=== PATIENT | male | born 1945 | race Caucasian/White ===

== ENCOUNTER 2016-04-23 19:31 | Inpatient (IN) | payer OTHER ==
[~2016-04-23] VITALS: Ht 175.3 cm; Wt 84.8 kg
[~2016-04-23 19:31] MED LIST: ASPCH81X PO; SIMV80TA2 PO; TELM80TA PO
[2016-04-23] MEDS ORDERED: SODIUM CHLORIDE 0.9% 1000ML 1,000 ML IV STA (19:54)
[2016-04-23] MEDS ORDERED: ONDANSETRON 8 MG/54 ML D5W IV STA (19:54)
[2016-04-23] MEDS ORDERED: DIAZEPAM INJ 5 MG/ML 2 ML CARP IV STA ×2 (19:54→20:53)
[2016-04-23] MEDS ORDERED: SODIUM CHLORIDE 0.9% 500ML 500 ML IV STA (19:54)
[2016-04-23 20:07] LABS: BASO % 0.2 %; BASO ABS # 0.03 K/uL (0-0.2); COMPLETE YES; EOS % 0.8 %; HEMATOCRIT 43.7 % (42-52); IG% 0.3 %; LYMPH % 6.5 %; LYMPH ABS # 0.98 K/uL (1.2-3.4); MEAN CELL VOLUME 88.8 fL (80-100); MEAN CORPUSCULAR HEMOGLOBIN 30.5 pg (25-34); MEAN CORPUSCULAR HGB CONC 34.3 g/dl (32-36); MEAN PLATELET VOLUME 12.3 fL (7.4-10.4); MONO % 4.3 %; NEUT % 87.9 %; PLATELET COUNT 200 K/uL (130-400); RED BLOOD COUNT 4.92 M/uL (4.7-6.1); WHITE BLOOD COUNT 15.02 K/uL (4.8-10.8)
[2016-04-23 20:18] LABS: PARTIAL THROMBOPLASTIN RATIO 1.1
[2016-04-23 20:39] LABS: BUN/CREATININE RATIO 19.2 (10-20); CALCIUM 9.6 mg/dl (8.5-10.1); CREATININE 0.95 mg/dl (0.60-1.40); MAGNESIUM 2.1 mg/dl (1.8-2.4)
--- NOTE | 2016-04-23 20:39 | DIAGNOSTIC IMAGING REPORT ---
CT HEAD WITHOUT CONTRAST (CT) CLINICAL HISTORY: Weakness COMPARISON STUDY: 10/15/2013 TECHNIQUE: Axial CT of the brain is performed from the vertex to the skull base. IV contrast was not administered for this examination. CT DOSE: 884.08 mGy.cm FINDINGS: There is a stable 16 mm midline posterior fossa mass with secondary deformity of the fourth ventricle. There is no CT evidence of acute cortical infarction. There is no midline shift. There is no acute hemorrhage. There are patchy white matter hypodensities likely on a small vessel basis. There is no evidence of pathologic ventricular dilatation. There is no evidence of acute sinusitis IMPRESSION: 1. No acute intracranial findings 2. Stable midline posterior fossa mass with secondary deformity of the fourth ventricle 3. No evidence of hydrocephalus Electronically signed by: Fausto Dyer M.D. 04/23/2016 8:37 PM Dictated Date/Time: 04/23/2016 8:35 PM
[2016-04-23 20:50] LABS: THYROID STIMULATING HORMONE 2.42 uIu/ml (0.300-4.500)
[2016-04-23] MEDS ORDERED: ACETAMINOPHEN 500 MG TAB PO STA (20:54)
[2016-04-23] MEDS ORDERED: CELE1CAP30 PO (21:15)
[2016-04-23] MEDS ORDERED: TPRSR/25 PO (21:15)
[2016-04-23] MEDS ORDERED: ACET-1256 PO (21:15)
[2016-04-23] MEDS ORDERED: LPT40 PO (21:15)
[2016-04-24] MEDS ORDERED: HYDROmorphone INJ 0.5 MG/0.5 ML SYR IV STA (00:48)
[2016-04-24] MEDS ORDERED: METOCLOPRAMIDE HCL INJ 5 MG/ML 2 ML VIAL IV STA (00:48)
[2016-04-24] MEDS ORDERED: DIAZEPAM INJ 5 MG/ML 2 ML CARP IV STA (00:48)
[2016-04-24] MEDS ORDERED: DiphenhydrAMINE HCL 50 MG/ML VIAL IV STA (00:48)
[2016-04-24 00:56] LABS: URINE APPEARANCE CLEAR (CLEAR); URINE BILIRUBIN NEG (NEG); URINE COLOR YELLOW; URINE NITRITE NEG (NEG); URINE SPECIFIC GRAVITY 1.014 (1.000-1.030); UROBILINOGEN NEG (NEG)
[2016-04-24 01:02] LABS: MANUAL MICROSCOPIC REQUIRED? NO; REVIEW REQ? NO
[2016-04-24] MEDS ORDERED: GADAVIST IV PRN (03:15)
[2016-04-24] MEDS ORDERED: ASPIRIN 81 MG CHEW PO STA (03:49)
--- NOTE | 2016-04-24 04:45 | EMERGENCY ROOM VISIT NOTE ---
History Report prepared by Bonifacio: Kathryn Tran Under the Supervision of: Dr. Liam Oshea M.D. First contact with patient: 19:39 Chief Complaint: VOMITING Stated Complaint: VOMITING, NAUSEA, DIARRHEA History of Present Illness The patient is a 70 year old male who presents to the Emergency Room via family with complaints of worsening nausea, vomiting, diarrhea, dizziness, and a right- sided headache with onset two hours ago. Two days ago, the patient went to see his PCP to be treated for gout. He was put on Celebrex, which he has been taking since. Two hours ago, the patient became dizzy, feeling as if the room was spinning, and he noticed that his walking was not normal. The patient notes that his headache started at the same time as his vomiting. He denies a history of vertigo. 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 The patient has a stent in place. Pt denies LOC, fevers, chills , diaphoresis, visual changes, neck pain, chest pain, breathing difficulties, abdominal pain, back pain, melena, hematochezia, urinary symptoms, numbness, weakness, lymphadenopathy, rash, or other complaints. Source of History: patient, family Onset: 2 hours ago Position: other (global) Quality: other (vomiting, dizziness) Timing: worsening Note: The patient was dizzy and noticed that his walking was not normal. Review of Systems See HPI for pertinent positives and negatives. A total of ten systems were reviewed and were otherwise negative. Past Medical & Surgical Medical Problems: (1) Dyslipidemia (2) Hypertension (3) Pancreatitis Family History Blood clots MOTHER Diabetes mellitus MOTHER FH: CAD (coronary artery disease) FATHER FH: atrial fibrillation BROTHER FH: kidney cancer FATHER FH: pancreatic cancer MOTHER Stroke MOTHER Social History Smoking Status: Current Every Day Smoker Marital Status: Current/Historical Medications Scheduled Aspirin (Aspirin Chewable), 81 MG PO DAILY Atorvastatin (Atorvastatin Calcium), 40 MG PO AFTERNOON Celecoxib (Celecoxib), 200 MG PO QAM Metoprolol Succinate (Metoprolol Succinate ER), 25 MG PO QAM Telmisartan (Micardis), 40 MG PO DAILY Scheduled PRN Acetaminophen (Tylenol), 500 MG PO Q6 PRN for Pain Allergies Coded Allergies: No Known Allergies (Unverified , 04/23/16) Physical Exam Vital Signs Date Time Temp Pulse Resp B/P Pulse Ox O2 Delivery O2 Flow Rate FiO2 04/24/16 01:00 62 16 150/80 96 Room Air 04/24/16 00:24 63 16 165/88 96 Room Air 04/23/16 22:41 73 16 97 04/23/16 22:36 77 20 97 04/23/16 22:31 65 18 97 04/23/16 22:28 162/112 04/23/16 22:26 67 14 97 04/23/16 22:21 65 16 97 04/23/16 22:16 67 14 97 04/23/16 22:11 67 14 97 04/23/16 22:06 72 14 95 04/23/16 22:01 71 21 97 04/23/16 21:59 153/85 04/23/16 21:56 78 19 97 04/23/16 21:51 70 11 98 04/23/16 21:46 89 13 98 04/23/16 21:41 76 12 98 04/23/16 21:36 68 14 98 04/23/16 21:33 65 04/23/16 21:31 74 15 97 04/23/16 21:29 162/107 04/23/16 21:26 70 10 97 04/23/16 21:12 63 18 174/95 98 Room Air 04/23/16 21:12 174/95 04/23/16 19:49 98 Room Air 04/23/16 19:49 98 Room Air 04/23/16 19:44 36.8 66 20 199/99 98 Room Air Physical Exam GENERAL: Awake, alert, well appearing, no distress HENT: Normocephalic, atraumatic. TM's normal. Oropharynx unremarkable. EYES: PERRL. EOMI. Normal conjunctiva. Sclera non-icteric. Lateral nystagmus with leftward gaze. NECK: Supple. No nuchal rigidity. FROM. No JVD or bruit. RESPIRATORY: CTA CARDIAC: RRR. No murmur. ABDOMEN: Soft, non distended. No tenderness to palpation. No rebound or guarding. No masses. RECTAL: Deferred. MUSCULOSKELETAL: Unremarkable. No edema. No discoloration. Gross motor strength symmetric. NEURO: Cranial nerves 2-12 grossly intact. Normal sensorium. No sensory or motor deficits noted. Speech normal. No pronator drift. Normal rapid alternating movements. SKIN: No rash or jaundice noted. LYMPH: No adenopathy. Medical Decision & Procedures ER Provider Diagnostic Interpretation: Radiology results as stated below per my review and radiologist interpretation. CT HEAD WITHOUT CONTRAST (CT) CLINICAL HISTORY: Weakness COMPARISON STUDY: 10/15/2013 TECHNIQUE: Axial CT of the brain is performed from the vertex to the skull base. IV contrast was not administered for this examination. CT DOSE: 884.08 mGy.cm FINDINGS: There is a stable 16 mm midline posterior fossa mass with secondary deformity of the fourth ventricle. There is no CT evidence of acute cortical infarction. There is no midline shift. There is no acute hemorrhage. There are patchy white matter hypodensities likely on a small vessel basis. There is no evidence of pathologic ventricular dilatation. There is no evidence of acute sinusitis IMPRESSION: 1. No acute intracranial findings 2. Stable midline posterior fossa mass with secondary deformity of the fourth ventricle 3. No evidence of hydrocephalus Electronically signed by: Fausto Dyer M.D. 04/23/2016 8:37 PM Dictated Date/Time: 04/23/2016 8:35 PM Laboratory Results 04/23/16 19:40 Red Blood Count 4.92, Mean Corpuscular Volume 88.8, Mean Corpuscular Hemoglobin 30.5, Mean Corpuscular Hemoglobin Concent 34.3, Mean Platelet Volume 12.3, Neutrophils (%) (Auto) 87.9, Lymphocytes (%) (Auto) 6.5, Monocytes (%) (Auto) 4.3, Eosinophils (%) (Auto) 0.8, Basophils (%) (Auto) 0.2, Neutrophils # (Auto) 13.19, Lymphocytes # (Auto) 0.98, Monocytes # (Auto) 0.65, Eosinophils # (Auto) 0.12, Basophils # (Auto) 0.03 04/23/16 19:40 Test 04/23/16 19:40 04/24/16 00:35 White Blood Count 15.02 K/uL (4.8-10.8) Red Blood Count 4.92 M/uL (4.7-6.1) Hemoglobin 15.0 g/dL (14.0-18.0) Hematocrit 43.7 % (42-52) Mean Corpuscular Volume 88.8 fL (80-100) Mean Corpuscular Hemoglobin 30.5 pg (25-34) Mean Corpuscular Hemoglobin Concent 34.3 g/dl (32-36) Platelet Count 200 K/uL (130-400) Mean Platelet Volume 12.3 fL (7.4-10.4) Neutrophils (%) (Auto) 87.9 % Lymphocytes (%) (Auto) 6.5 % Monocytes (%) (Auto) 4.3 % Eosinophils (%) (Auto) 0.8 % Basophils (%) (Auto) 0.2 % Neutrophils # (Auto) 13.19 K/uL (1.4-6.5) Lymphocytes # (Auto) 0.98 K/uL (1.2-3.4) Monocytes # (Auto) 0.65 K/uL (0.11-0.59) Eosinophils # (Auto) 0.12 K/uL (0-0.5) Basophils # (Auto) 0.03 K/uL (0-0.2) RDW Standard Deviation 42.7 fL (36.4-46.3) RDW Coefficient of Variation 13.2 % (11.5-14.5) Immature Granulocyte % (Auto) 0.3 % Immature Granulocyte # (Auto) 0.05 K/uL (0.00-0.02) Prothrombin Time 11.0 SECONDS (9.0-12.0) Prothromb Time International Ratio 1.0 (0.9-1.1) Activated Partial Thromboplast Time 27.3 SECONDS (21.0-31.0) Partial Thromboplastin Ratio 1.1 Anion Gap 9.0 mmol/L (3-11) Est Creatinine Clear Calc Drug Dose 83.5 ml/min Estimated GFR () 93.0 Estimated GFR (Non- 80.2 BUN/Creatinine Ratio 19.2 (10-20) Calcium Level 9.6 mg/dl (8.5-10.1) Magnesium Level 2.1 mg/dl (1.8-2.4) Total Bilirubin 0.3 mg/dl (0.2-1) Direct Bilirubin 0.1 mg/dl (0-0.2) Aspartate Amino Transf (AST/SGOT) 22 U/L (15-37) Alanine Aminotransferase (ALT/SGPT) 37 U/L (12-78) Alkaline Phosphatase 99 U/L (45-117) Total Protein 7.7 gm/dl (6.4-8.2) Albumin 3.9 gm/dl (3.4-5.0) Lipase 126 U/L (73-393) Thyroid Stimulating Hormone (TSH) 2.420 uIu/ml (0.300-4.500) Urine Color YELLOW Urine Appearance CLEAR (CLEAR) Urine pH 7.0 (4.5-7.5) Urine Specific [place] 1.014 (1.000-1.030) Urine Protein NEG (NEG) Urine Glucose (UA) NEG (NEG) Urine Ketones NEG (NEG) Urine Occult Blood NEG (NEG) Urine Nitrite NEG (NEG) Urine Bilirubin NEG (NEG) Urine Urobilinogen NEG (NEG) Urine Leukocyte Esterase NEG (NEG) Laboratory results reviewed by me Medications Administered Medications (Trade) Dose Ordered Sig/Cass Route Start Time Stop Time Status Last Admin Dose Admin Sodium Chloride (Nss 1000ml) 1,000 ml @ 125 mls/hr Q8H STAT IV 04/23/16 19:54 04/24/16 03:53 DC 04/23/16 20:01 125 MLS/HR Ondansetron HCl 8 mg 8 mg NOW STAT IV 04/23/16 19:54 04/23/16 19:57 DC 04/23/16 20:01 8 MG Sodium Chloride (Nss 500ml) 500 ml @ 999 mls/hr Q31M STAT IV 04/23/16 19:54 04/23/16 20:24 DC 04/23/16 20:01 999 MLS/HR Diazepam (Valium Inj) 2.5 mg NOW STAT IV 04/23/16 19:54 04/23/16 19:57 DC 04/23/16 20:01 2.5 MG Diazepam (Valium Inj) 2.5 mg NOW STAT IV 04/23/16 20:53 04/23/16 20:55 DC 04/23/16 21:10 2.5 MG Acetaminophen (Tylenol Tab) 1,000 mg NOW STAT PO 04/23/16 20:54 04/23/16 20:57 DC 04/23/16 21:11 1,000 MG Diazepam (Valium Inj) 2.5 mg NOW STAT IV 04/24/16 00:48 04/24/16 00:50 DC 04/24/16 01:30 2.5 MG Metoclopramide HCl (Reglan Inj) 10 mg NOW STAT IV 04/24/16 00:48 04/24/16 00:50 DC 04/24/16 01:24 10 MG Diphenhydramine HCl (Benadryl Inj) 12.5 mg NOW STAT IV 04/24/16 00:48 04/24/16 00:50 DC 04/24/16 01:23 12.5 MG Hydromorphone HCl (Dilaudid Inj) 0.25 mg NOW STAT IV 04/24/16 00:48 04/24/16 00:50 DC 04/24/16 01:28 0.25 MG ECG Indication: vomiting Rate (beats per minute): 66 Rhythm: sinus rhythm Findings: PAC, no acute ischemic change ED Course 1942: The patient was evaluated in room A4. A complete history and physical exam was performed. 1953: Valium 2.5 mg IV, Sodium Chloride 500 ml @ 999 mls/hr IV, Zofran 8 mg IV, Sodium Chloride 1000 ml @ 125 mls/hr IV 2050: I revaluated the patient; his nausea is better but he is still dizzy. I will order more Valium and he will be getting an MRI. 2052: Valium 2.5 mg IV 2053: Tylenol Tab 1000 mg PO 2221: I discussed the case with Dr. Yates ([facility]); he will further evaluate the patient. He wishes to wait until the MRI was resulted. 5: Patient is pending MR imaging. He was nauseated and noted a headache. He was given Reglan, Benadryl, and 0.5 mg of Dilaudid IV. 0250: The patient was reassessed and is feeling better. His MRI is concerning for a cerebellar infarct and MRA is concerning for PICA occlusion. Consultation was made with [facility] stroke neurology, Dr. Loyola. The case was discussed. Given the location of the event he felt that further measures would not benefit the patient. He recommended close observation due to potential swelling issues. 0330: The patient was given aspirin. patient was reassessed and informed. He is feeling better. He will be staying in the hospital. Dr. Yates was notified. Medical Decision Prior records/ancillary studies reviewed. Triage Nursing notes reviewed and agree them. The patient's history was concerning for dizziness. Differential diagnosis: Etiologies such as benign positional vertigo, tumor, infection, hypoglycemia, electrolyte abnormalities, cardiac sources, intracerebral event, toxicologic, neurologic, as well as others were entertained. Physical examination: As above. No pathologic nystagmus. ER treatment provided: IV hydration over one hour IV Valium and IV Zofran On reassessment the patient felt somewhat better but was still dizzy. IV Valium IV Benadryl IV Reglan IV Dilaudid On reassessment the patient was feeling better but still had some dizziness with movement Oral aspirin Diagnostics interpretation by me: ECG: Normal sinus rhythm without ischemic change or evidence of dysrhythmia. The labs revealed a leukocytosis on CBC which I suspect is from his vomiting. Coags, chemistry panel, LFTs and lipase negative. TSH negative. Imaging studies: CT and MRI/MRA as above The patient has an acute CVA. This did not show up on CT imaging. MR imaging was diagnostic. They will need further evaluation and management in the hospital. Consultation: A consultation was placed with the hospitalist. The case was discussed and diagnostics were reviewed. Consultation was also made with stroke neurology who did not recommend transfer for further treatment. Recommended conservative workup here. The patient was evaluated in the ER for further treatment. The chart was completed utilizing [employer] Speech voice recognition software. Grammatical errors, random word insertions, pronoun errors, and incomplete sentences are an occasional consequence of this system due to software limitations, ambient noise, and hardware issues. Any formal questions or concerns about the content, text, or information contained within the body of this dictation should be directly addressed to the physician for clarification. Consults Time Called: 2219 Consulting Physician: Dr. Yates ([facility]) Returned Call: 2221 I discussed the case with Dr. Yates ([facility]); he will further evaluate the patient. Impression Primary Impression: Cerebellar infarct Additional Impressions: Vomiting Dizziness Critical Care I have personally spent greater than 30 minutes of critical care time in the direct management of this patient. This includes bedside care, interpretation of diagnostic studies, and testing, discussion with consultants, patient, and family members, and other required patient management activities. This 30 minutes is in excess of all separately billable procedures. Scribe Attestation The scribe's documentation has been prepared under my direction and personally reviewed by me in its entirety. I confirm that the note above accurately reflects all work, treatment, procedures, and medical decision making performed by me. Departure Information Dispostion Being Evaluated By Hospitalist Referrals Sagar Jasso M.D. (PCP) Patient Instructions My [facility] Problem Qualifiers
[2016-04-24] MEDS ORDERED: LORAZEPAM 2 MG/ML 1 ML VIAL IV PRN (05:15)
[2016-04-24] MEDS ORDERED: ACETAMINOPHEN IV 650 MG in EMPTY BAG 0 ML IV PRN (05:15)
[2016-04-24] MEDS ORDERED: SODIUM CHLORIDE 0.9% 1000ML 1,000 ML IV SCH (05:30)
[2016-04-24] MEDS ORDERED: ONDANSETRON INJ 6 MG in DEXTROSE 5% 50ML 50 ML IV PRN (05:30)
--- NOTE | 2016-04-24 05:54 | History and Physical ---
History & Physical Date & Time of Service: Apr 24, 2016 at 05:29 Chief Complaint: Vomiting, Nausea, Diarrhea Primary Care Physician: Sagar Jasso M.D. History of Present Illness Source: patient 70 y/o M w/Hx HTN, HPL, CAD - presents with acute vertigo, nausea/vomiting. Denies fevers, diarrhea, sinus congestion, JIM or previous such episodes. An MRI /MRA was obtained in the ER revealing an acute inf cerebellar CVA with occlusion of the R PICA. The pt had been 10 hours out of symptom onset at the time of diagnosis and has a known stable 1.6 cm post intracranial mass so that TPA may be contraindicated regardless. Fortunately he is exhibiting marked symptomatic improvement at the time of admission and following treatment with antiemetics. The ER had contacted the stroke service at [place] and had been advised on conservative management. Past Medical/Surgical History Medical Problems: (1) Dyslipidemia Status: Chronic (2) Hypertension Status: Chronic (3) Pancreatitis Status: Resolved 4) CAD - pt had a mild [place] in 2013 resulting in 2 stents placed at [facility] Family History Blood clots MOTHER Diabetes mellitus MOTHER FH: CAD (coronary artery disease) FATHER FH: atrial fibrillation BROTHER FH: kidney cancer FATHER FH: pancreatic cancer MOTHER Stroke MOTHER Social History Smoking Status: Current Every Day Smoker Marital Status: Housing status: lives with family Allergies Coded Allergies: No Known Allergies (Unverified , 04/23/16) Home Medications Scheduled Aspirin (Aspirin Chewable), 81 MG PO DAILY Atorvastatin (Atorvastatin Calcium), 40 MG PO AFTERNOON Celecoxib (Celecoxib), 200 MG PO QAM Metoprolol Succinate (Metoprolol Succinate ER), 25 MG PO QAM Telmisartan (Micardis), 40 MG PO DAILY Scheduled PRN Acetaminophen (Tylenol), 500 MG PO Q6 PRN for Pain Review of Systems Constitutional: No chills, No fever, No sweats Eyes: No worsening of vision ENT: No hearing loss, No nasal symptoms, No unusual epistaxis Respiratory: No cough, No sputum, No wheezing Cardiovascular: No PND, No chest pain, No orthopnea Abdomen: + nausea, + vomiting, No pain Musculoskeletal: No joint pain, No muscle pain Genitourinary - Male: No dysuria, No hematuria, No urinary frequency, No urinary urgency Neurologic: + balance problems, + vertigo, No memory loss, No paralysis Psychiatric: No depression symptoms Endocrine: No fatigue Hematologic / Lymphatic: No abnormal bleeding/bruising Integumentary: No rash Physical Exam Vital Signs Date Time Temp Pulse Resp B/P Pulse Ox O2 Delivery O2 Flow Rate FiO2 04/24/16 04:45 76 18 105/90 96 Room Air 04/24/16 01:00 62 16 150/80 96 Room Air 04/24/16 00:24 63 16 165/88 96 Room Air 04/23/16 22:41 73 16 97 04/23/16 22:36 77 20 97 04/23/16 22:31 65 18 97 04/23/16 22:28 162/112 04/23/16 22:26 67 14 97 04/23/16 22:21 65 16 97 04/23/16 22:16 67 14 97 04/23/16 22:11 67 14 97 04/23/16 22:06 72 14 95 04/23/16 22:01 71 21 97 04/23/16 21:59 153/85 04/23/16 21:56 78 19 97 04/23/16 21:51 70 11 98 04/23/16 21:46 89 13 98 04/23/16 21:41 76 12 98 04/23/16 21:36 68 14 98 04/23/16 21:33 65 04/23/16 21:31 74 15 97 04/23/16 21:29 162/107 04/23/16 21:26 70 10 97 04/23/16 21:12 63 18 174/95 98 Room Air 04/23/16 21:12 174/95 04/23/16 19:49 98 Room Air 04/23/16 19:49 98 Room Air 04/23/16 19:44 36.8 66 20 199/99 98 Room Air General Appearance: WD/WN, no apparent distress Head: normocephalic, atraumatic Eyes: normal inspection, EOMI, + pertinent finding (No nystagmus on admission) ENT: normal ENT inspection, pharynx normal Neck: supple, no JVD, + pertinent finding (May have a mild L carotid bruit) Respiratory/Chest: chest non-tender, lungs clear, normal breath sounds, no respiratory distress, no accessory muscle use Cardiovascular: regular rate, rhythm, no edema, no gallop, no JVD, no murmur, normal peripheral pulses Abdomen/GI: normal bowel sounds, non tender, soft Back: normal inspection, no CVA tenderness Extremities/Musculoskelatal: normal inspection, no calf tenderness, normal capillary refill Neurologic/Psych: manager film II-XII nml as tested, no motor/sensory deficits, alert, normal mood/affect, normal reflexes, oriented x 3 Skin: normal color, warm/dry, no rash Diagnostics Laboratory Results Results Past 24 Hours Test 04/23/16 19:40 04/24/16 00:35 Range/Units White Blood Count 15.02 4.8-10.8 K/uL Red Blood Count 4.92 4.7-6.1 M/uL Hemoglobin 15.0 14.0-18.0 g/dL Hematocrit 43.7 42-52 % Mean Corpuscular Volume 88.8 80-100 fL Mean Corpuscular Hemoglobin 30.5 25-34 pg Mean Corpuscular Hemoglobin Concent 34.3 32-36 g/dl Platelet Count 200 130-400 K/uL Mean Platelet Volume 12.3 7.4-10.4 fL Neutrophils (%) (Auto) 87.9 % Lymphocytes (%) (Auto) 6.5 % Monocytes (%) (Auto) 4.3 % Eosinophils (%) (Auto) 0.8 % Basophils (%) (Auto) 0.2 % Neutrophils # (Auto) 13.19 1.4-6.5 K/uL Lymphocytes # (Auto) 0.98 1.2-3.4 K/uL Monocytes # (Auto) 0.65 0.11-0.59 K/uL Eosinophils # (Auto) 0.12 0-0.5 K/uL Basophils # (Auto) 0.03 0-0.2 K/uL RDW Standard Deviation 42.7 36.4-46.3 fL RDW Coefficient of Variation 13.2 11.5-14.5 % Immature Granulocyte % (Auto) 0.3 % Immature Granulocyte # (Auto) 0.05 0.00-0.02 K/uL Prothrombin Time 11.0 9.0-12.0 SECONDS Prothromb Time International Ratio 1.0 0.9-1.1 Activated Partial Thromboplast Time 27.3 21.0-31.0 SECONDS Partial Thromboplastin Ratio 1.1 Sodium Level 142 136-145 mmol/L Potassium Level 4.0 3.5-5.1 mmol/L Chloride Level 106 98-107 mmol/L Carbon Dioxide Level 27 21-32 mmol/L Anion Gap 9.0 3-11 mmol/L Blood Urea Nitrogen 18 7-18 mg/dl Creatinine 0.95 0.60-1.40 mg/dl Est Creatinine Clear Calc Drug Dose 83.5 ml/min Estimated GFR () 93.0 Estimated GFR (Non- 80.2 BUN/Creatinine Ratio 19.2 10-20 Random Glucose 136 70-99 mg/dl Calcium Level 9.6 8.5-10.1 mg/dl Magnesium Level 2.1 1.8-2.4 mg/dl Total Bilirubin 0.3 0.2-1 mg/dl Direct Bilirubin 0.1 0-0.2 mg/dl Aspartate Amino Transf (AST/SGOT) 22 15-37 U/L Alanine Aminotransferase (ALT/SGPT) 37 12-78 U/L Alkaline Phosphatase 99 45-117 U/L Total Protein 7.7 6.4-8.2 gm/dl Albumin 3.9 3.4-5.0 gm/dl Lipase 126 73-393 U/L Thyroid Stimulating Hormone (TSH) 2.420 0.300-4.500 uIu/ml Urine Color YELLOW Urine Appearance CLEAR CLEAR Urine pH 7.0 4.5-7.5 Urine Specific [place] 1.014 1.000-1.030 Urine Protein NEG NEG Urine Glucose (UA) NEG NEG Urine Ketones NEG NEG Urine Occult Blood NEG NEG Urine Nitrite NEG NEG Urine Bilirubin NEG NEG Urine Urobilinogen NEG NEG Urine Leukocyte Esterase NEG NEG Diagnostic Radiology CT head Stable midline posterior fossa mass with secondary deformity of the fourth ventricle. No evidence of hydrocephalus. 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 Denies fevers, diarrhea, sinus congestion, JIM or previous such episodes. An MRI /MRA was obtained in the ER revealing an acute inf cerebellar CVA with occlusion of the R PICA. The pt had been 10 hours out of symptom onset at the time of diagnosis and has a known stable 1.6 cm post intracranial mass so that TPA may be contraindicated regardless. Fortunately he is exhibiting marked symptomatic improvement at the time of admission and following treatment with antiemetics. The ER had contacted the stroke service at [facility] and had been advised on conservative management. 1) CVA - Pt is taking daily ASA which we have changed to Plavix pending neuro eval. We have held his antihypertensives - Statin dose will be increased - Neurochecks per CVA protocol - he was initially admitted to the ICU 2) CAD- no evidence of ACS - monitor on telemetry - Plavix and Lipitor provided - B gabbi held due to acute CVA 3) HTN - antihypertensives held 4) HPL - Statin increased/continued SCDs for prophylaxis considering mass - full code Total time for this admit including critical care time - review of labs, imaging , records - discussion with pt and ER attending - 40 min Level of Care Critical Care Resuscitation Status FULL RESUSCITATION VTE Prophylaxis VTE Risk Assessment Done? Y/N: Yes Risk Level: Moderate Given or contraindicated: SCD's
[2016-04-24 07:55] VITALS: BP 171/101; PULSE 60; TEMP 36.7; O2SAT 98; Ht 175.3 cm; Wt 84.8 kg
[2016-04-24 08:00] VITALS: BP 151/94; PULSE 94; TEMP 36.7; O2SAT 98
--- NOTE | 2016-04-24 08:19 | DIAGNOSTIC IMAGING REPORT ---
ADDENDUM ADDENDUM: As noted in the initial report there is an acute to subacute right cerebellar hemispheric infarct with mild associated edema. This largely obscures the presence of a small underlying mass lesion in the posterior fossa which has been present from MRI examinations dating back to 10/15/2013. This is best seen on today's proton density sequence and measures 1.8 x 1.6 cm (image #6 of 22). This has not significantly changed from 2013. The mass lesion likely bulges into the fourth ventricle which is similar to previous. Again, there is no evidence of hydrocephalus. Electronically signed by: Jovon Lee M.D. 04/24/2016 11:47 AM Dictated Date/Time: 04/24/2016 11:43 AM ORIGINAL REPORT MRI OF THE BRAIN COMBO CLINICAL HISTORY: COMPARISON STUDY: CT of the brain dated 04/23/2016. TECHNIQUE: MRI of the brain was performed utilizing various T1 and T2-weighted sequences in the axial, sagittal, and coronal planes. Contrast-enhanced sequences were acquired following the administration of 10 cc of Gadavist. FINDINGS: Brain parenchyma: There are age-related involutional changes noting mild subcortical and periventricular microangiopathic disease. There is a large region of restricted diffusion identified throughout the right cerebellar hemisphere, likely representing acute to subacute ischemia. There is localized edema/mass effect with effacement of the fourth ventricle. There is mild No additional foci of restricted diffusion are identified. There is no hemorrhage or midline shift. No enhancing mass lesion is identified on the postcontrast images. No extra-axial fluid collection is seen. The cerebellar tonsils are normal in configuration. Ventricles, sulci, and cisterns: Prominent secondary to involutional change. Pituitary and sella: Unremarkable. Intracranial vasculature: Normal flow voids are maintained at the skull base. Orbits: The bony orbits are grossly intact. Orbital contents are normal in appearance. Sinuses and mastoids: There is mild to moderate mucosal thickening within the ethmoid sinuses. Trace mucosal thickening is seen in the right frontal sinus. The remaining paranasal sinuses are clear. The mastoid air cells are well pneumatized. Calvarium: Unremarkable. Cervical cord: Partially visualized cervical spinal cord is normal in morphology and signal intensity. IMPRESSION: 1. There is a large region of restricted diffusion identified throughout the right cerebellar hemisphere consistent with acute to subacute ischemia. 2. There is edema within the right cerebellar hemisphere with effacement of the fourth ventricle. There is no hydrocephalus. 3. No additional foci of acute ischemia are suspected. There is no hemorrhage or enhancing mass lesion. Electronically signed by: Jovon Lee M.D. 04/24/2016 8:17 AM Dictated Date/Time: 04/24/2016 8:12 AM
--- NOTE | 2016-04-24 08:49 | DIAGNOSTIC IMAGING REPORT ---
MR ANGIOGRAM OF THE BRAIN CLINICAL HISTORY: Dizziness. Stroke. COMPARISON STUDY: MRI of the brain performed concurrently on 04/24/2016. TECHNIQUE: 3-D [id number] MR angiography of the intracranial circulation is performed. 3-D tumble views are created and assessed. IV contrast was not administered for this examination. FINDINGS: The right A1 segment is diminutive. The internal carotid arteries are widely patent bilaterally, as are the anterior and middle cerebral arteries. The vertebrobasilar system and posterior cerebral arteries are widely patent. The left vertebral artery is dominant. There is no aneurysm identified. There is focal vessel cut off identified involving the right PICA, best seen on axial image #153 no additional focal vessel cut off is seen. Mild atherosclerotic irregularity is noted within the middle cerebral arteries. IMPRESSION: 1. There is focal vessel cut off identified involving the right PICA. This corresponds to the right cerebellar infarct seen on the concurrently performed MRI of the brain. 2. Otherwise unremarkable MR angiogram of the brain. Electronically signed by: Jovon Lee M.D. 04/24/2016 8:48 AM Dictated Date/Time: 04/24/2016 8:45 AM
[2016-04-24 09:00] VITALS: BP 158/89; PULSE 65; O2SAT 96
[2016-04-24] MEDS ORDERED: CLOPIDOGREL BISULFATE 75 MG TAB PO SCH (09:00)
[2016-04-24] MEDS ORDERED: OXYCODONE HCL IR 5 MG TAB (IMMEDIATE RELEASE) PO PRN (10:15)
[2016-04-24] MEDS ORDERED: INFLUENZA VIRUS QUAD VACCINE 0.5 ML SYR IM. ONE (10:15)
[2016-04-24] MEDS ORDERED: PNEUMOCOCCAL ADMINISTRATION CHARGE ONE (10:15)
[2016-04-24] MEDS ORDERED: PNEUMOCOCCAL POLYSACCHARIDES 25 MCG/0.5 ML VIAL/SYR IM. ONE (10:15)
[2016-04-24] MEDS ORDERED: INFLUENZA ADMINISTRATION CHARGE ONE (10:15)
[2016-04-24] MEDS: ONDANSETRON INJ 2 MG/ML 2 ML VIAL IV PRN ×2 (10:17→14:19)
[2016-04-24] MEDS: ACETAMINOPHEN 325 MG TAB PO PRN ×2 (10:17→14:19)
[2016-04-24 12:00] VITALS: BP 160/84; PULSE 63; TEMP 36.7; O2SAT 97
--- NOTE | 2016-04-24 12:35 | DIAGNOSTIC IMAGING REPORT ---
CT SCAN OF THE BRAIN WITHOUT IV CONTRAST CLINICAL HISTORY: Cerebellar infarct. COMPARISON STUDY: CT of the brain dated 04/23/2016. MRI of the brain dated 04/24/2016 and 10/15/2013. TECHNIQUE: Unenhanced axial CT scan of the brain is performed from the vertex to the skull base. CT DOSE: 712.55 mGy.cm FINDINGS: Brain parenchyma: There is loss of parker-white differentiation and mild edema seen throughout the medial right cerebellar hemisphere consistent with an evolving cerebellar infarct. There is only mild associated mass effect. A subtle mass lesion is again seen in the posterior fossa end effaces the fourth ventricle. This is best seen on axial image #10 and measures at least 1.7 cm. This was better visualized by MRI. There are age-related involutional changes noting mild subcortical and periventricular microangiopathic change. There is no hemorrhage or midline shift. No new foci of ischemia are suspected by CT criteria. No extra-axial fluid collection is seen. There is no crowding of the cerebellar tonsils at the skull base. Ventricles, sulci, cisterns: Prominent secondary to involutional change. There is chronic effacement of fourth ventricle as above. No hydrocephalus is seen. Intracranial vasculature: There is atherosclerotic calcification of the cavernous carotid and vertebral arteries. Calvarium: Unremarkable. Sinuses and mastoids: Trace mucosal thickening is seen within the ethmoid sinuses. The remaining visualized paranasal sinuses are clear. The mastoid air cells are well pneumatized. Orbits: The bony orbits are grossly intact. IMPRESSION: 1. There is loss of parker-white matter differentiation throughout the medial right cerebellar hemisphere consistent with an evolving infarct. No hemorrhage is seen. 2. There is only mild mass effect associated with the infarct. There is no crowding of the cerebellar tonsils at the skull base. 3. A subtle mass lesion in the posterior fossa effacing the fourth ventricle has not significantly changed from studies dating back to 2013. There is no evidence of developing hydrocephalus. 4. No new foci of ischemia are suspected by CT criteria. Electronically signed by: Jovon Lee M.D. 04/24/2016 12:33 PM Dictated Date/Time: 04/24/2016 12:28 PM
[2016-04-24] MEDS ORDERED: LPT40 PO (13:54)
[2016-04-24] MEDS ORDERED: PLV75 PO (13:54)
--- NOTE | 2016-04-24 13:57 | Discharge Instructions ---
Discharge Instructions Admission Reason for Admission: Cva, Vertigo As Late Effect Of Stroke Discharge Discharge Diagnosis / Problem: Acute right cerebellar CVA, Acute right PICA occlusion Discharge Goals Goal(s): Decrease discomfort Activity Recommendations Activity Limitations: as noted below Bed rest . Instructions / Follow-Up Instructions / Follow-Up Patient is being transferred acutely to [facility] for further management where neuro surgical services are available. Current Hospital Diet Patient's current hospital diet: AHA Diet (Heart Healthy) Discharge Diet Recommended Diet: AHA Diet (Heart Healthy) Procedures Procedures Performed: See the tranfer summary Pending Studies Studies pending at discharge: no Medical Emergencies . Who to Call and When: Medical Emergencies: If at any time you feel your situation is an emergency, please call 911 immediately. . Non-Emergent Contact Non-Emergency issues call your: Primary Care Provider . . "Provider Documentation" section prepared by Golden Parkinson. VTE Core Measure Inpt VTE Proph given/why not?: SCD's
[2016-04-24 14:00] VITALS: BP 166/84; PULSE 68; O2SAT 98
--- NOTE | 2016-04-24 14:01 | Discharge Instructions ---
Discharge Instructions Admission Reason for Admission: Cva, Vertigo As Late Effect Of Stroke Discharge Discharge Diagnosis / Problem: Acute right cerebellar CVA, Acute right PICA occlusion Discharge Goals Goal(s): Decrease discomfort Activity Recommendations Activity Limitations: as noted below Bed rest . Instructions / Follow-Up Instructions / Follow-Up Patient is being transferred acutely to [facility] for further management where neuro surgical services are available. Risk Factors for Stroke: You can reduce your chances of stroke by working with your medical provider to adopt a healthy lifestyle. Some specific ways to lower your chance of stroke are: * If you are a smoker, now is the time to stop smoking cigarettes * If you are diabetic, improve the control of your blood sugars * Avoid excessive amounts of alcohol * Control high blood pressure * Lose weight if you are overweight * Be sure to lead an active lifestyle * Eat a healthy diet low in salt, cholesterol and fat You should know about other risk factors for stroke that you are unable to control. These include: * Age 55 years or older * Male gender * Certain racial groups: , or / * Family History of Stroke, Mini stroke or Heart Attack * Sickle Cell Disease Follow Up: It is important for you to keep your follow up appointments with your medical provider. Current Hospital Diet Patient's current hospital diet: AHA Diet (Heart Healthy) Discharge Diet Recommended Diet: AHA Diet (Heart Healthy) Procedures Procedures Performed: See the tranfer summary Pending Studies Studies pending at discharge: no Medical Emergencies . Who to Call and When: Medical Emergencies: Call 911 immediately if you experience any of the following warning signs and symptoms of Stroke: * Sudden numbness or weakness of the face, arm or leg, especially on one side of the body * Sudden confusion, trouble speaking or understanding * Sudden trouble seeing in one or both eyes * Sudden trouble walking, dizziness, loss of balance or coordination * Sudden severe headache with no cause Do not delay calling 911 if you experience any warning signs or symptoms of a stroke. Delay in seeking medical attention may affect what treatments can be given to you. . Non-Emergent Contact Non-Emergency issues call your: Primary Care Provider . . "Provider Documentation" section prepared by Golden Parkinson. Stroke Core Measures Reason no t-PA for Stroke: Contraindicated Reason no antithrom by day 2: Treatment provided - N/A Reason no antithrom at D/C: Treatment provided - N/A Reason no statin at D/C: Treatment provided - N/A Reason no anticoag w/a fib: Treatment not indicated VTE Core Measure Inpt VTE Proph given/why not?: SCD's
--- NOTE | 2016-04-24 14:01 | Critical Care Consultation ---
Critical Care Consultation Date of Consultation: Apr 24, 2016. Attending Physician: Arlene Melvin MD Reason for Consultation: Right posterior cerebellar bone stroke, right PICA occlusion, mass effect, fourth ventricle mass, concern for herniation syndrome History of Present Illness Patient is a 70-year-old male who presented to the emergency department for abrupt onset intractable nausea and vomiting. Initial CT scan was unremarkable , the patient was admitted for intractable nausea and vomiting, in the differential was occipital infarct, the patient received an MRI which demonstrated a right PICA occlusion and developing cerebellar edema. There was conversation with Dr. Vigil of [facility] stroke regarding possible TPA, he was outside the window for TPA. He was admitted to the ICU for frequent neuro monitoring. Past Medical/Surgical History Dyslipidemia Hypertension Known cerebellar mass Family History Blood clots MOTHER Diabetes mellitus MOTHER FH: CAD (coronary artery disease) FATHER FH: atrial fibrillation BROTHER FH: kidney cancer FATHER FH: pancreatic cancer MOTHER Stroke MOTHER Social History Patient uses smokeless tobacco Smoking Status: Current Every Day Smoker Marital Status: Allergies Coded Allergies: No Known Allergies (Unverified , 04/23/16) Home Medications Scheduled Aspirin (Aspirin Chewable), 81 MG PO DAILY Atorvastatin (Atorvastatin Calcium), 40 MG PO AFTERNOON Celecoxib (Celecoxib), 200 MG PO QAM Metoprolol Succinate (Metoprolol Succinate ER), 25 MG PO QAM Telmisartan (Micardis), 40 MG PO DAILY Scheduled PRN Acetaminophen (Tylenol), 500 MG PO Q6 PRN for Pain Current Inpatient Medications Current Inpatient Medications Medications (Trade) Dose Ordered Sig/Cass Route Start Time Stop Time Status Last Admin Dose Admin Gadobutrol (Gadavist) 10 mmol UD PRN IV 04/24/16 03:15 04/28/16 03:14 Atorvastatin Calcium (Lipitor Tab) 80 mg HS PO 04/24/16 21:00 05/24/16 20:59 Lorazepam (Ativan Inj) 0.5 mg Q4H PRN IV 04/24/16 05:15 05/24/16 05:14 Clopidogrel Bisulfate 75 mg 75 mg QAM PO 04/24/16 09:00 05/24/16 08:59 04/24/16 09:00 75 MG Acetaminophen 650 mg/Empty Bag 65 ml @ 260 mls/hr Q6H PRN IV 04/24/16 05:15 05/24/16 05:14 Sodium Chloride (Nss 1000ml) 1,000 ml @ 80 mls/hr [id number] IV 04/24/16 05:30 04/24/16 17:59 04/24/16 08:00 80 MLS/HR Ondansetron HCl (Zofran Inj) 4 mg Q6H PRN IV 04/24/16 10:15 05/24/16 10:14 04/24/16 10:17 4 MG Oxycodone HCl (Roxicodone Immediate Rel Tab) 5 mg Q6 PRN PO 04/24/16 10:15 05/08/16 10:14 Acetaminophen (Tylenol Tab) 650 mg Q4H PRN PO 04/24/16 10:15 05/24/16 10:14 04/24/16 10:17 650 MG Review of Systems A 10 point review of systems has been reviewed and is otherwise negative Cardiovascular: No chest pain, No orthopnea Abdomen: + nausea, + vomiting Physical Exam Date Time Temp Pulse Resp B/P Pulse Ox O2 Delivery O2 Flow Rate FiO2 04/24/16 12:00 36.7 63 15 160/84 97 Room Air 04/24/16 12:00 Room Air 04/24/16 09:00 65 13 158/89 96 Room Air 04/24/16 08:00 36.7 94 13 151/94 98 Room Air 04/24/16 08:00 Room Air 04/24/16 07:55 36.7 60 12 171/101 98 Room Air 04/24/16 06:50 74 18 179/95 96 Room Air 04/24/16 05:30 130/74 04/24/16 04:45 76 18 105/90 96 Room Air 04/24/16 01:00 62 16 150/80 96 Room Air 04/24/16 00:24 63 16 165/88 96 Room Air 04/23/16 22:41 73 16 97 04/23/16 22:36 77 20 97 04/23/16 22:31 65 18 97 04/23/16 22:28 162/112 04/23/16 22:26 67 14 97 04/23/16 22:21 65 16 97 04/23/16 22:16 67 14 97 04/23/16 22:11 67 14 97 04/23/16 22:06 72 14 95 04/23/16 22:01 71 21 97 04/23/16 21:59 153/85 04/23/16 21:56 78 19 97 04/23/16 21:51 70 11 98 04/23/16 21:46 89 13 98 04/23/16 21:41 76 12 98 04/23/16 21:36 68 14 98 04/23/16 21:33 65 04/23/16 21:31 74 15 97 04/23/16 21:29 162/107 04/23/16 21:26 70 10 97 04/23/16 21:12 63 18 174/95 98 Room Air 04/23/16 21:12 174/95 04/23/16 19:49 98 Room Air 04/23/16 19:49 98 Room Air 04/23/16 19:44 36.8 66 20 199/99 98 Room Air General Appearance: well-appearing, no apparent distress Head: normocephalic, atraumatic Eyes: PERRLA, EOMI ENT: normal mouth exam, normal throat exam Neck: normal range of motion, no tenderness, trachea midline, other (no bruit) Respiratory: breath sounds normal, clear to auscultation, clear to percussion, no respiratory distress Cardiovasular: regular rate/rhythm, normal S1S2, no M/G/R, no murmur, no gallop Abdomen: non tender, normal bowel sounds, no rebound, no masses, no guarding Genitourinary - Male: external genitalia normal (Beasley present) Back: normal inspection Upper Extremities: no edema, no deformity, normal ROM Lower Extremities: no edema Neuro: alert, oriented x 3, normal motor exam, other (past-pointing with a right upper extremity, mild difficulty with [id number] function with the right lower extremity) Laboratory Results Last 24 Hours Test 04/23/16 19:40 04/24/16 00:35 04/24/16 08:49 04/24/16 11:14 White Blood Count 15.02 K/uL Red Blood Count 4.92 M/uL Hemoglobin 15.0 g/dL Hematocrit 43.7 % Mean Corpuscular Volume 88.8 fL Mean Corpuscular Hemoglobin 30.5 pg Mean Corpuscular Hemoglobin Concent 34.3 g/dl Platelet Count 200 K/uL Mean Platelet Volume 12.3 fL Neutrophils (%) (Auto) 87.9 % Lymphocytes (%) (Auto) 6.5 % Monocytes (%) (Auto) 4.3 % Eosinophils (%) (Auto) 0.8 % Basophils (%) (Auto) 0.2 % Neutrophils # (Auto) 13.19 K/uL Lymphocytes # (Auto) 0.98 K/uL Monocytes # (Auto) 0.65 K/uL Eosinophils # (Auto) 0.12 K/uL Basophils # (Auto) 0.03 K/uL RDW Standard Deviation 42.7 fL RDW Coefficient of Variation 13.2 % Immature Granulocyte % (Auto) 0.3 % Immature Granulocyte # (Auto) 0.05 K/uL Prothrombin Time 11.0 SECONDS Prothromb Time International Ratio 1.0 Activated Partial Thromboplast Time 27.3 SECONDS Partial Thromboplastin Ratio 1.1 Sodium Level 142 mmol/L Potassium Level 4.0 mmol/L Chloride Level 106 mmol/L Carbon Dioxide Level 27 mmol/L Anion Gap 9.0 mmol/L Blood Urea Nitrogen 18 mg/dl Creatinine 0.95 mg/dl Est Creatinine Clear Calc Drug Dose 83.5 ml/min Estimated GFR () 93.0 Estimated GFR (Non- 80.2 BUN/Creatinine Ratio 19.2 Random Glucose 136 mg/dl Calcium Level 9.6 mg/dl Magnesium Level 2.1 mg/dl Total Bilirubin 0.3 mg/dl Direct Bilirubin 0.1 mg/dl Aspartate Amino Transf (AST/SGOT) 22 U/L Alanine Aminotransferase (ALT/SGPT) 37 U/L Alkaline Phosphatase 99 U/L Total Protein 7.7 gm/dl Albumin 3.9 gm/dl Lipase 126 U/L Thyroid Stimulating Hormone (TSH) 2.420 uIu/ml Urine Color YELLOW Urine Appearance CLEAR Urine pH 7.0 Urine Specific Selby 1.014 Urine Protein NEG Urine Glucose (UA) NEG Urine Ketones NEG Urine Occult Blood NEG Urine Nitrite NEG Urine Bilirubin NEG Urine Urobilinogen NEG Urine Leukocyte Esterase NEG Bedside Glucose 104 mg/dl 121 mg/dl Diagnostic Results Pulse CT scan of the head dated April 23 and April 24 were independently reviewed by me as well as the radiology report reviewed. The MRI and MRA dated 04/24/2016 images were reviewed independently by myself as well as the radiology interpretation. I discussed this case specifically with Dr. 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 Mata of neurosurgery , has not established care with subsequent neurosurgeon Right PICA occlusion: Outside window for TPA Right cerebellar CVA, evolving infarct: Placed on Plavix, at risk for herniation syndrome. There was no evidence of obstructive hydrocephalus, and the patient had at the cerebellar tonsils. Most concerning way recently told her [facility] and [facility] helicopter EMS have been grounded due to poor weather conditions. If the patient were to require emergent or urgent suboccipital decompressive craniectomy he would have to be transferred greater than 2 hours to [facility]. I discussed the case with Dr. Hoffman, neurosurgery [facility] was willing to accept the patient for observation for this reason. I also discussed cased the case with Dr. Solomon of [facility] neurology, he was in agreement with my concerns Vertigo: Secondary to right cerebellar CVA: Antiemetics as tolerated, may require lorazepam Neuro checks every hour Cardiovascular: Hypertension: Holding hypertensive medications at this time. Dyslipidemia: Continue statin Respiratory: Former smoker, currently using smokeless tobacco Abdomen: Regular diet Renal: Tolerating oral hydration Hematology: Plavix was added for antiplatelet effect Patient placed in SCDs We will hold chemical prophylaxis until neurosurgical evaluation. Endocrine: Blood sugars within adequate range Patient is a full code, patient's would be surrogate decision maker I have personally spent 60 minutes of critical care time in the direct management of this patient. This is a life/limb threatening event. This includes time spent evaluating patient, direct bedside care, chart review, placing orders, interpretation of diagnostic studies, discussion with consultants, patient, and family members, as well as other required patient management activities. This time is exclusive of all separately billable procedures, and teaching time and separate from and in addition to any other critical care service time.
--- NOTE | 2016-04-24 14:35 | Discharge Summary ---
Discharge Summary Admission Date: Apr 24, 2016 at 05:08 Discharge Date: Apr 24, 2016 Discharge Disposition: Acute care facility Principal Diagnosis: Acute right cerebellar CVA, Acute right PICA occlusion Procedures: Repeated: 04/24/2016 CT SCAN OF THE BRAIN WITHOUT IV CONTRAST CLINICAL HISTORY: Cerebellar infarct. COMPARISON STUDY: CT of the brain dated 04/23/2016. MRI of the brain dated 04/24/2016 and 10/15/2013. TECHNIQUE: Unenhanced axial CT scan of the brain is performed from the vertex to the skull base. CT DOSE: 712.55 mGy.cm FINDINGS: Brain parenchyma: There is loss of parker-white differentiation and mild edema seen throughout the medial right cerebellar hemisphere consistent with an evolving cerebellar infarct. There is only mild associated mass effect. A subtle mass lesion is again seen in the posterior fossa end effaces the fourth ventricle. This is best seen on axial image #10 and measures at least 1.7 cm. This was better visualized by MRI. There are age-related involutional changes noting mild subcortical and periventricular microangiopathic change. There is no hemorrhage or midline shift. No new foci of ischemia are suspected by CT criteria. No extra-axial fluid collection is seen. There is no crowding of the cerebellar tonsils at the skull base. Ventricles, sulci, cisterns: Prominent secondary to involutional change. There is chronic effacement of fourth ventricle as above. No hydrocephalus is seen. Intracranial vasculature: There is atherosclerotic calcification of the cavernous carotid and vertebral arteries. Calvarium: Unremarkable. Sinuses and mastoids: Trace mucosal thickening is seen within the ethmoid sinuses. The remaining visualized paranasal sinuses are clear. The mastoid air cells are well pneumatized. Orbits: The bony orbits are grossly intact. IMPRESSION: 1. There is loss of parker-white matter differentiation throughout the medial right cerebellar hemisphere consistent with an evolving infarct. No hemorrhage is seen. 2. There is only mild mass effect associated with the infarct. There is no crowding of the cerebellar tonsils at the skull base. 3. A subtle mass lesion in the posterior fossa effacing the fourth ventricle has not significantly changed from studies dating back to 2013. There is no evidence of developing hydrocephalus. 4. No new foci of ischemia are suspected by CT criteria. 04/23/2016 CT HEAD WITHOUT CONTRAST (CT) CLINICAL HISTORY: Weakness COMPARISON STUDY: 10/15/2013 TECHNIQUE: Axial CT of the brain is performed from the vertex to the skull base. IV contrast was not administered for this examination. CT DOSE: 884.08 mGy.cm FINDINGS: There is a stable 16 mm midline posterior fossa mass with secondary deformity of the fourth ventricle. There is no CT evidence of acute cortical infarction. There is no midline shift. There is no acute hemorrhage. There are patchy white matter hypodensities likely on a small vessel basis. There is no evidence of pathologic ventricular dilatation. There is no evidence of acute sinusitis IMPRESSION: 1. No acute intracranial findings 2. Stable midline posterior fossa mass with secondary deformity of the fourth ventricle 3. No evidence of hydrocephalus 04/24/2016 MR ANGIOGRAM OF THE BRAIN CLINICAL HISTORY: Dizziness. Stroke. COMPARISON STUDY: MRI of the brain performed concurrently on 04/24/2016. TECHNIQUE: 3-D [id number] MR angiography of the intracranial circulation is performed. 3-D tumble views are created and assessed. IV contrast was not administered for this examination. FINDINGS: The right A1 segment is diminutive. The internal carotid arteries are widely patent bilaterally, as are the anterior and middle cerebral arteries. The vertebrobasilar system and posterior cerebral arteries are widely patent. The left vertebral artery is dominant. There is no aneurysm identified. There is focal vessel cut off identified involving the right PICA, best seen on axial image #153 no additional focal vessel cut off is seen. Mild atherosclerotic irregularity is noted within the middle cerebral arteries. IMPRESSION: 1. There is focal vessel cut off identified involving the right PICA. This corresponds to the right cerebellar infarct seen on the concurrently performed MRI of the brain. 2. Otherwise unremarkable MR angiogram of the brain. 04/24/2016 MRI OF THE BRAIN COMBO CLINICAL HISTORY: COMPARISON STUDY: CT of the brain dated 04/23/2016. TECHNIQUE: MRI of the brain was performed utilizing various T1 and T2-weighted sequences in the axial, sagittal, and coronal planes. Contrast-enhanced sequences were acquired following the administration of 10 cc of Gadavist. FINDINGS: Brain parenchyma: There are age-related involutional changes noting mild subcortical and periventricular microangiopathic disease. There is a large region of restricted diffusion identified throughout the right cerebellar hemisphere, likely representing acute to subacute ischemia. There is localized edema/mass effect with effacement of the fourth ventricle. There is mild No additional foci of restricted diffusion are identified. There is no hemorrhage or midline shift. No enhancing mass lesion is identified on the postcontrast images. No extra-axial fluid collection is seen. The cerebellar tonsils are normal in configuration. Ventricles, sulci, and cisterns: Prominent secondary to involutional change. Pituitary and sella: Unremarkable. Intracranial vasculature: Normal flow voids are maintained at the skull base. Orbits: The bony orbits are grossly intact. Orbital contents are normal in appearance. Sinuses and mastoids: There is mild to moderate mucosal thickening within the ethmoid sinuses. Trace mucosal thickening is seen in the right frontal sinus. The remaining paranasal sinuses are clear. The mastoid air cells are well pneumatized. Calvarium: Unremarkable. Cervical cord: Partially visualized cervical spinal cord is normal in morphology and signal intensity. IMPRESSION: 1. There is a large region of restricted diffusion identified throughout the right cerebellar hemisphere consistent with acute to subacute ischemia. 2. There is edema within the right cerebellar hemisphere with effacement of the fourth ventricle. There is no hydrocephalus. 3. No additional foci of acute ischemia are suspected. There is no hemorrhage or enhancing mass lesion. ADDENDUM: As noted in the initial report there is an acute to subacute right cerebellar hemispheric infarct with mild associated edema. This largely obscures the presence of a small underlying mass lesion in the posterior fossa which has been present from MRI examinations dating back to 10/15/2013. This is best seen on today's proton density sequence and measures 1.8 x 1.6 cm (image #6 of 22). This has not significantly changed from 2014. The mass lesion likely bulges into the fourth ventricle which is similar to previous. Again, there is no evidence of hydrocephalus. (Golden Parkinson MD) Discharge Exam This is a 70 y/o M w/ Hx HTN, HPL, CAD s/p 2 stents in 2013 presents to the ED with acute vertigo, nausea/vomiting. Denies fevers, diarrhea, sinus congestion or previous such episodes. An MRI/MRA was obtained in the ER revealing an acute inferior cerebellar CVA with occlusion of the R PICA. The pt had been 10 hours out of symptom onset at the time of diagnosis and has a known stable 1.6 cm post intracranial mass so that TPA may be contraindicated regardless. Fortunately he is exhibiting marked symptomatic improvement at the time of admission and following treatment with antiemetics. The stroke service at [facility] was contacted. Patient currently complains of headache and nausea. Denies weakness, numbness, dizziness, or any other additional complaints. Review of Systems: Constitutional: + problem reported (Complaining of headache), No chills, No fever Respiratory: No cough, No shortness of breath, No wheezing Cardiovascular: No chest pain, No edema Abdomen: + nausea, No pain, No vomiting Neurologic: + balance problems, No paralysis, No weakness Physical Exam: General Appearance: no apparent distress Eyes: PERRL, EOMI Neck: supple Respiratory/Chest: chest non-tender, lungs clear, normal breath sounds, no respiratory distress, no accessory muscle use Cardiovascular: no edema, no gallop, no murmur, normal peripheral pulses Abdomen / GI: normal bowel sounds, non tender, soft Extremities: normal inspection, no pedal edema, normal range of motion Neurologic/Psychiatric: cleat layer II-XII nml as tested, alert, normal mood/affect , normal reflexes, oriented x 3 Skin: normal color, warm/dry, no rash (Golden Parkinson MD) Hospital Course This is a 70 y/o M w/Hx HTN, HPL, CAD s/p 2 stents in 2013 presents with acute vertigo, nausea/vomiting. - Upon admission ASA was changed to Plavix 75mg. All the antihypertensives medications were on hold. Statin dose was increased to 80mg. Neuro checks was performed per CVA protocol. CT and MRI of the brain showed right cerebellar CVA with occlusion of the right PICA. Repeated CT and MRI was performed. - MRI showed there is a large region of restricted diffusion identified throughout the right cerebellar hemisphere consistent with acute to subacute ischemia. There is edema within the right cerebellar hemisphere with effacement of the fourth ventricle. There is no hydrocephalus. A 1.8X1.6cm mass in the posterior fossa was also noted which is unchanged from 2014. - [facility] was contacted given concern for possible worsening of cerebellar edema. It was decided to transfer the patient to [facility] for further management where Neuro surgery service is available. This includes examination of the patient, discharge planning, medication reconciliation, and communication with other providers. (Golden Parkinson MD) Discharge Instructions Please refer to the electronic Patient Visit Report (Discharge Instructions) for additional information. (Goledn Parkinson MD) Reviewed: Pt Seen/Exam by SARY Schultz Notes, Labs, RAD, EKG (Arlene Melvin MD) History Resident Physician Supervision Note: I was present with Dr. Parkinson during the history and exam. I discussed the case with the resident and agree with the findings and plan as documented in the note. Any exceptions or clarifications are listed here: Pt with improvement in his symptoms of N/V and headache although still present on day of transfer. Repeat CT head showed evolving infarct and edema in right cerebellar region of CVA. Case d/w Critical Care MD who then discussed case with Neurology here and at [facility]. Decision was made to transfer by ground to [facility] for continued observation for worsening cerebral edema in case of need for NS intervention as helicopter was unavailable due to weather conditions in case of emergency need for transfer. Neuro exam: CN 2-12 intact grossly,5/5 strength throughout, sensation intact to light touch throughout, DTRs 1+ throughout, Finger to nose grossly abnormal on right, normal on left, heel to wilburn and rapid alt hand tests were normal bilat. , gait not tested A/P: 70 yo male with acute right cerebellar CVA-large, with occlusion of right PICA with evolving infarct and brain edema, concern for potential herniation. Transfer to [facility] for further observation as above. Allowing permissive HTN and holding home BP meds. Increased statin to high dose and switched from ASA to Plavix. No events on tele prior to transfer. Documented By: Arlene Melvin (Arlene Melvin MD)
--- NOTE | 2016-04-24 14:46 | Neurology Consultation ---
Neurology Consultation Date of Consultation: Apr 24, 2016. Attending Physician: Arlene Melvin MD Primary Care Physician: Sagar Jasso M.D. Reason for Consultation: Stroke History of Present Illness Source: patient, spouse The patient is a 70-year-old right-handed male with a chief complaint of dizziness that began about 2 hours prior to his arrival in the emergency department and was associated with nausea, vomiting, headache, and staggering with attempts at standing and walking. He did not fall. These symptoms occurred rather suddenly, after dinner. He describes the dizziness as a spinning sensation. He indicates that his headache is located along the right temporal area. He has had headaches here before. He denies any associated vision or speech disturbances. He denies any associated numbness of the face or limbs. 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 Mata. This tumor partially effaces the fourth ventricle and has been stable radiographically since its discovery. Given this patient's acute neurological presentation, a CT of the head was completed in the emergency department. This study was negative for hemorrhage or acute process and was not considered to be significantly changed compared with a previous study done in October 2013. A tele-stroke consultation was also obtained. TPA was not administered given this patient's history of known brain tumor. The patient was admitted to the ICU for monitoring of his neurological status. A brain MRI is completed about 6 hours after completion of his initial CT of the head. This study reveals a moderate to large sized area of restricted diffusion within the inferior right cerebellar hemisphere and low signal on corresponding ADC map consistent with an acute to subacute cerebellar stroke. There is mild associated cytotoxic edema. There does not appear to be evidence of acute ischemic injury within the brainstem. There is partial effacement of the fourth ventricle related to the previously identified ependymoma which is adjacent to the rostral border of the acute infarct. MRA of the head reveals an acute cutoff of the right posterior inferior cerebral artery consistent with occlusion. Electrocardiogram reveals a sinus rhythm with PACs, 66 bpm. patient was hypertensive upon presentation with a blood pressure of 199/99. He is afebrile. The patient have been taking Lipitor and aspirin at the time of his presentation. Past Medical/Surgical History Medical Problems: (1) Cerebellar infarct Status: Acute (2) Dizziness Status: Acute (3) Vomiting Status: Acute Family History Patient's mother had a history of blood clots and stroke Social History Marital Status: Allergies Coded Allergies: No Known Allergies (Unverified , 04/23/16) Current Inpatient Medications Current Inpatient Medications Medications (Trade) Dose Ordered Sig/Cass Route Start Time Stop Time Status Last Admin Dose Admin Gadobutrol (Gadavist) 10 mmol UD PRN IV 04/24/16 03:15 04/28/16 03:14 Atorvastatin Calcium (Lipitor Tab) 80 mg HS PO 04/24/16 21:00 05/24/16 20:59 Lorazepam (Ativan Inj) 0.5 mg Q4H PRN IV 04/24/16 05:15 05/24/16 05:14 Clopidogrel Bisulfate 75 mg 75 mg QAM PO 04/24/16 09:00 05/24/16 08:59 04/24/16 09:00 75 MG Acetaminophen 650 mg/Empty Bag 65 ml @ 260 mls/hr Q6H PRN IV 04/24/16 05:15 05/24/16 05:14 Sodium Chloride (Nss 1000ml) 1,000 ml @ 80 mls/hr [id number] IV 04/24/16 05:30 04/24/16 17:59 04/24/16 08:00 80 MLS/HR Ondansetron HCl (Zofran Inj) 4 mg Q6H PRN IV 04/24/16 10:15 05/24/16 10:14 04/24/16 10:17 4 MG Oxycodone HCl (Roxicodone Immediate Rel Tab) 5 mg Q6 PRN PO 04/24/16 10:15 05/08/16 10:14 Acetaminophen (Tylenol Tab) 650 mg Q4H PRN PO 04/24/16 10:15 05/24/16 10:14 04/24/16 10:17 650 MG Review of Systems The patient denies fever, chills, vision changes, acute hearing loss, palpitations, shortness of breath, cough, abdominal pain, diarrhea, dysuria, incontinence, muscle pain, rash, skin lesions, swollen glands, easy bleeding, depression, or anxiety He does complain of mild chronic hearing loss on the right, and chronic knee pain A full 10 point review of systems was obtained from this patient with pertinent positives and negatives described in the history of present illness and otherwise listed above. Physical Exam Vital Signs (Past 24 Hrs): Date Time Temp Pulse Resp B/P Pulse Ox O2 Delivery O2 Flow Rate FiO2 04/24/16 12:00 36.7 63 15 160/84 97 Room Air 04/24/16 12:00 Room Air 04/24/16 09:00 65 13 158/89 96 Room Air 04/24/16 08:00 36.7 94 13 151/94 98 Room Air 04/24/16 08:00 Room Air 04/24/16 07:55 36.7 60 12 171/101 98 Room Air 04/24/16 06:50 74 18 179/95 96 Room Air 04/24/16 05:30 130/74 04/24/16 04:45 76 18 105/90 96 Room Air 04/24/16 01:00 62 16 150/80 96 Room Air 04/24/16 00:24 63 16 165/88 96 Room Air 04/23/16 22:41 73 16 97 04/23/16 22:36 77 20 97 04/23/16 22:31 65 18 97 04/23/16 22:28 162/112 04/23/16 22:26 67 14 97 04/23/16 22:21 65 16 97 04/23/16 22:16 67 14 97 04/23/16 22:11 67 14 97 04/23/16 22:06 72 14 95 04/23/16 22:01 71 21 97 04/23/16 21:59 153/85 04/23/16 21:56 78 19 97 04/23/16 21:51 70 11 98 04/23/16 21:46 89 13 98 04/23/16 21:41 76 12 98 04/23/16 21:36 68 14 98 04/23/16 21:33 65 04/23/16 21:31 74 15 97 04/23/16 21:29 162/107 04/23/16 21:26 70 10 97 04/23/16 21:12 63 18 174/95 98 Room Air 04/23/16 21:12 174/95 04/23/16 19:49 98 Room Air 04/23/16 19:49 98 Room Air 04/23/16 19:44 36.8 66 20 199/99 98 Room Air The patient is a well-developed elderly male. He is currently in the ICU, his is at bedside. He is pleasant and cooperative. The patient is alert and oriented to person place and time. Attention and concentration normal. Recent and remote memory intact. He is able to name objects, repeat phrases, and read text. He correctly describes a complex visual seen. He exhibits a normal spontaneous speech pattern. His speech is non-dysarthric sounding. He exhibits an age-appropriate fund of knowledge and normal vocabulary. Visual manley full to confrontation. Visual acuity normal. Pupils equal round reactive to light and accommodation. Eye movements normal. There is no nystagmus. There is no ptosis. Facial sensation intact bilaterally. There is normal facial symmetry and strength. No facial droop. Palate elevates to midline. Tongue protrudes to midline. Shoulder shrug strength intact bilaterally. Hearing intact to finger rub bilaterally although slightly diminished for the right. Sensation intact to vibration, proprioception, light touch, and temperature for the arms and legs. Deep tendon reflexes are 2+ for the upper and lower extremities bilaterally. Plantar responses downgoing. There is moderate dysmetria with finger to nose on the right. Heel to wilburn on the right is normal as is heel to wilburn on the left. There is no dysmetria with finger to nose on the left. There is a right upper extremity downward drift. Ophthalmoscopic examination reveals normal-appearing optic nerves and posterior segments. There is no papilledema. No hemorrhage. Carotid pulses are normal to auscultation, no bruits. Musculoskeletal examination reveals intact strength for the arms and legs bilaterally. Muscle tone normal throughout. There is no atrophy. No abnormal movements observed. Gait not tested due to safety concerns. Laboratory Results Past 24 Hours: 04/23/16 19:40 Red Blood Count 4.92, Mean Corpuscular Volume 88.8, Mean Corpuscular Hemoglobin 30.5, Mean Corpuscular Hemoglobin Concent 34.3, Mean Platelet Volume 12.3, Neutrophils (%) (Auto) 87.9, Lymphocytes (%) (Auto) 6.5, Monocytes (%) (Auto) 4.3, Eosinophils (%) (Auto) 0.8, Basophils (%) (Auto) 0.2, Neutrophils # (Auto) 13.19, Lymphocytes # (Auto) 0.98, Monocytes # (Auto) 0.65, Eosinophils # (Auto) 0.12, Basophils # (Auto) 0.03 04/23/16 19:40 Test 04/23/16 19:40 04/24/16 00:35 04/24/16 11:14 White Blood Count 15.02 K/uL (4.8-10.8) Red Blood Count 4.92 M/uL (4.7-6.1) Hemoglobin 15.0 g/dL (14.0-18.0) Hematocrit 43.7 % (42-52) Mean Corpuscular Volume 88.8 fL (80-100) Mean Corpuscular Hemoglobin 30.5 pg (25-34) Mean Corpuscular Hemoglobin Concent 34.3 g/dl (32-36) Platelet Count 200 K/uL (130-400) Mean Platelet Volume 12.3 fL (7.4-10.4) Neutrophils (%) (Auto) 87.9 % Lymphocytes (%) (Auto) 6.5 % Monocytes (%) (Auto) 4.3 % Eosinophils (%) (Auto) 0.8 % Basophils (%) (Auto) 0.2 % Neutrophils # (Auto) 13.19 K/uL (1.4-6.5) Lymphocytes # (Auto) 0.98 K/uL (1.2-3.4) Monocytes # (Auto) 0.65 K/uL (0.11-0.59) Eosinophils # (Auto) 0.12 K/uL (0-0.5) Basophils # (Auto) 0.03 K/uL (0-0.2) RDW Standard Deviation 42.7 fL (36.4-46.3) RDW Coefficient of Variation 13.2 % (11.5-14.5) Immature Granulocyte % (Auto) 0.3 % Immature Granulocyte # (Auto) 0.05 K/uL (0.00-0.02) Prothrombin Time 11.0 SECONDS (9.0-12.0) Prothromb Time International Ratio 1.0 (0.9-1.1) Activated Partial Thromboplast Time 27.3 SECONDS (21.0-31.0) Partial Thromboplastin Ratio 1.1 Anion Gap 9.0 mmol/L (3-11) Est Creatinine Clear Calc Drug Dose 83.5 ml/min Estimated GFR () 93.0 Estimated GFR (Non- 80.2 BUN/Creatinine Ratio 19.2 (10-20) Calcium Level 9.6 mg/dl (8.5-10.1) Magnesium Level 2.1 mg/dl (1.8-2.4) Total Bilirubin 0.3 mg/dl (0.2-1) Direct Bilirubin 0.1 mg/dl (0-0.2) Aspartate Amino Transf (AST/SGOT) 22 U/L (15-37) Alanine Aminotransferase (ALT/SGPT) 37 U/L (12-78) Alkaline Phosphatase 99 U/L (45-117) Total Protein 7.7 gm/dl (6.4-8.2) Albumin 3.9 gm/dl (3.4-5.0) Lipase 126 U/L (73-393) Thyroid Stimulating Hormone (TSH) 2.420 uIu/ml (0.300-4.500) Urine Color YELLOW Urine Appearance CLEAR (CLEAR) Urine pH 7.0 (4.5-7.5) Urine Specific [place] 1.014 (1.000-1.030) Urine Protein NEG (NEG) Urine Glucose (UA) NEG (NEG) Urine Ketones NEG (NEG) Urine Occult Blood NEG (NEG) Urine Nitrite NEG (NEG) Urine Bilirubin NEG (NEG) Urine Urobilinogen NEG (NEG) Urine Leukocyte Esterase NEG (NEG) Bedside Glucose 121 mg/dl (70-99) Date/Time Source Procedure Growth Status 04/24/16 07:45 Nasal MRSA DNA Surveillance Screen - Final Specimen Negative for MRSA by DNA Probe Complete Imaging I reviewed the images and radiologist's interpretation of the imaging described in the history of present illness. I also reviewed the follow-up CT of the head completed earlier this morning. This study is negative for hemorrhage. There is evolving edema. There is no hydrocephalus. Impression Acute moderate to large sized right cerebellar infarct with evolving cytotoxic edema due to occlusion of the right posterior inferior cerebellar artery. This infarct is located in close proximity to a known brain tumor that partially effaces the fourth ventricle. This tumor was identified in 2013 and has been radiographically stable and is felt to be consistent with an ependymoma. This patient's examination reveals moderate ataxia of the right upper limb which is consistent with the acute right cerebellar stroke. He does not appear to have gross ataxia of the right lower limb with bedside testing although I was unable to observe the patient ambulate. His history suggested that he was having acute problems with ataxia of gait. I do not find abnormalities of ocular motility, speech, or cranial nerve function. There is no evidence of associated medullary stroke. Plan Case discussed with last trimmer at bedside. Patient has been accepted to the neurosurgical service at [facility] for further monitoring which is reasonable given that progression of cytotoxic edema may continue for several days following an acute stroke of this type. Further, the location of the stroke as well as the adjacent tumor that partially effaces the fourth ventricle poses a significant risk for the development of acute hydrocephalus if the observed edema continues to progress. Neurosurgical treatment with need to be considered in that setting. Both the patient and his are agreeable to transfer to [facility] at this time. I've no further recommendations pertaining to this patient's immediate management. He will remain in the intensive care unit until he is transferred. Please contact me if I may be of further assistance.
[2016-04-24] MEDS ORDERED: ATORVASTATIN 40 MG TAB PO SCH (21:00)
--- NOTE | 2016-04-24 22:26 | ECHOCARDIOGRAM REPORT ---
*NOTICE TO RECEIVING [employer] This information is strictly Confidential and protected under [place] law. [place] law prohibits you from making any further disclosure of this information unless further disclosure is expressly permitted by the written consent of the person to whom it pertains or is authorized by law. A general authorization for the release of medical or other information is not sufficient for this purpose. Hospital accepts no responsibility if the information is made available to any other person, INCLUDING THE PATIENT. Interpretation Summary * Name: DAGMAR DIAZ Study Date: 04/24/2016 01:37 PM BP: 105/90 mmHg * Patient Location: [facility] HR: 76 * : 1945 (M/d/yyyy) Gender: Male Height: 69 in * Age: 70 yrs Ethnicity: CA Weight: 222 lb * Ordering Physician: Tristian Yates * Performed By: Emiliana Arenas RDCS * * Reason For Study: CVA * BSA: 2.2 m2 * -- Conclusions -- * 1. Normal LV size. Mild concentric LVH. * 2. Normal LV systolic function. LVEF 55-60 %. Posterior wall from base to mid segment is thinned, severely hypokinetic. * 3. Normal RV size and function. * 4. No significant valvular pathology. * 5. Normal estimated PA and RA pressures. * 6. Compared with prior study on 10/16/2013: Posterior wall motion abnormality is new. Procedure Details * A complete two-dimensional transthoracic echocardiogram was performed (2D, M-mode, Doppler and color flow Doppler). Left Ventricle * The left ventricle is grossly normal size. * There is mild concentric left ventricular hypertrophy. * The basal septum is thickened and angulated consistent with sigmoid septum. * Ejection Fraction = 55-60%. * There is severe posterior wall hypokinesis. Right Ventricle * The right ventricle is not well visualized. * The right ventricle is grossly normal size. * The right ventricular systolic function is normal. Atria * The left atrium is mildly dilated. * Right atrium not well visualized. * Right atrial size is normal. * No ASD detected; PFO is not assessed. Mitral Valve * The mitral valve is grossly normal. * There is no mitral valve stenosis. * Significant mitral regurgitation is absent. Tricuspid Valve * The tricuspid valve is not well visualized. * There is no tricuspid stenosis. * Significant tricuspid regurgitation is absent. * Right ventricular systolic pressure is normal. Aortic Valve * The aortic valve is not well visualized. * No hemodynamically significant valvular aortic stenosis. * There is no significant aortic regurgitation. Pulmonic Valve * The pulmonary valve is inadequately visualized, but the Doppler data is adequate for interpretation. * There is no pulmonic valvular stenosis. * There is no significant pulmonary regurgitation. Great Vessels * Borderline aortic root dilatation. Pericardium/Pleural * There is no pericardial effusion. Great Vessels * Normal inferior vena cava diameter and respiratory variation suggests normal central venous pressure. MMode 2D Measurements and Calculations IVSd 1.3 cm LVIDd 4.3 cm LVIDs 2.7 cm LVPWd 1.1 cm IVS/LVPW 1.2 FS 38.3 % EDV(Teich) 84.4 ml ESV(Teich) 26.4 ml EF(Teich) 68.8 % EDV(cubed) 81.2 ml ESV(cubed) 19.1 ml EF(cubed) 76.5 % LV mass(C)d 188.2 grams LV mass(C)dI 87.1 grams/m\S\2 SV(Teich) 58.1 ml SI(Teich) 26.9 ml/m\S\2 SV(cubed) 62.0 ml SI(cubed) 28.7 ml/m\S\2 Ao root diam 3.9 cm Ao root area 12.0 cm\S\2 ACS 2.1 cm LA dimension 3.7 cm asc Aorta Diam 3.6 cm LA/Ao 0.96 LVAd ap4 33.2 cm\S\2 LVLd ap4 8.1 cm EDV(MOD-sp4) 110.2 ml EDV(sp4-el) 114.8 ml LVAs ap4 17.8 cm\S\2 LVLs ap4 6.9 cm ESV(MOD-sp4) 39.7 ml ESV(sp4-el) 39.0 ml EF(MOD-sp4) 63.9 % EF(sp4-el) 66.0 % LVAd ap2 25.2 cm\S\2 LVLd ap2 7.5 cm EDV(MOD-sp2) 68.5 ml EDV(sp2-el) 71.5 ml LVAs ap2 11.7 cm\S\2 LVLs ap2 5.6 cm ESV(MOD-sp2) 20.2 ml ESV(sp2-el) 20.8 ml EF(MOD-sp2) 70.5 % EF(sp2-el) 70.9 % LVLd %diff -7.79 % EDV(MOD-bp) 90.1 ml LVLs %diff -22.98 % ESV(MOD-bp) 31.1 ml EF(MOD-bp) 65.4 % SV(MOD-sp4) 70.5 ml SI(MOD-sp4) 32.6 ml/m\S\2 SV(MOD-sp2) 48.3 ml SI(MOD-sp2) 22.4 ml/m\S\2 SV(MOD-bp) 59.0 ml SI(MOD-bp) 27.3 ml/m\S\2 SV(sp4-el) 75.8 ml SI(sp4-el) 35.1 ml/m\S\2 SV(sp2-el) 50.7 ml SI(sp2-el) 23.5 ml/m\S\2 Doppler Measurements and Calculations MV E max brennan 85.9 cm/sec MV A max brennan 70.3 cm/sec MV E/A 1.2 MV dec time 0.16 sec Ao V2 max 108.6 cm/sec Ao max PG 4.7 mmHg Ao max PG (full) 1.5 mmHg LV V1 max PG 3.3 mmHg LV V1 max 90.2 cm/sec PA V2 max 101.8 cm/sec PA max PG 4.1 mmHg PA acc slope 667.6 cm/sec\S\2 PA acc time 0.09 sec TR max brennan 268.5 cm/sec PA pr(Accel) 37.8 mmHg
== END 2016-04-24 14:45 | disposition short-term general hospital (02) | DRG 66 ==
LOC: ENRESERVDT → ENRESERVTM → EDBD 19:31 → C.EDA 19:34 → C.MSICU 04-24 05:08
PROVIDERS: ADMIT Internal Medicine; ATTEND Family Medicine
DX: I63.541 Cerebral infarction due to unspecified occlusion or stenosis of right cerebellar artery (principal); I10 Essential (primary) hypertension; I25.2 Old myocardial infarction; E78.5 Hyperlipidemia, unspecified; I25.10 Atherosclerotic heart disease of native coronary artery without angina pectoris; F17.210 Nicotine dependence, cigarettes, uncomplicated; R27.0 Ataxia, unspecified

== ENCOUNTER → 2016-06-02 | Outpatient (CLI) | payer OTHER ==
[~2016-06-02] MED LIST changes: +ACET-1256 PO; +CELE1CAP30 PO; +LPT40 PO; +PLV75 PO; -SIMV80TA2 PO; +TPRSR/25 PO
[2016-06-02 17:27] LABS: PFT COL EPI 214 SECONDS (80-184)
[2016-06-02 17:37] LABS: PFT COL ADP 102 SECONDS (56-102)
== END | disposition home or self-care (01) ==
LOC: C.LAB 15:59
PROVIDERS: ATTEND Internal Medicine
DX: I63.9 Cerebral infarction, unspecified (principal)

== ENCOUNTER 2021-09-21 08:33 | Observation (INO) ==
--- NOTE | 2021-08-21 08:41 | PAT Medication Instructions ---
Medication Instructions Date of Service August 21, 2021 Home Medications atorvastatin 40 mg tablet 40 mg PO PM clopidogrel 75 mg tablet 75 mg PO QAM metoprolol succinate 25 mg tablet,extended release 24 hr (Toprol XL) 25 mg PO QAM telmisartan 40 mg tablet 40 mg PO QAM ASK your prescriber and surgeon clopidogrel 75 mg tablet 75 mg PO QAM (in order for spinal anesthesia, clopidogrel/Plavix needs to be stopped 7 days before surgery. Please check if okay with doctor that prescribes this to you) DO NOT take the morning of surgery telmisartan 40 mg tablet 40 mg PO QAM Take morning of surgery With a small sip of water, OTHERWISE NOTHING TO EAT OR DRINK AFTER MIDNIGHT: metoprolol succinate 25 mg tablet,extended release 24 hr (Toprol XL) 25 mg PO QAM Take evening before surgery atorvastatin 40 mg tablet 40 mg PO PM Other Notes If you have any questions please call us at [phone] or [phone] or [phone] or [phone]
--- NOTE | 2021-08-21 11:45 | Anesthesiology Consultation ---
Date of Service August 21, 2021 Assessment & Plan (1) Encounter for pre-operative examination: - Patient acceptable risk for surgery pending cardiology preop evaluation (Rufus MURILLO/ANGELA). - COVID screening: Per assessment on 08/21: No known COVID-19 positive contacts or current COVID-19 related symptoms. Travel screen- return from [place] via car 08/21. Patient states no large gatherings or out of state travel 2+ weeks prior to DOS. Surgeon arranging preop COVID testing. Awaiting results. Chart Review Chart Review: Patient seen in Pre Admission Testing Teaching & Discussion Pre-Anesthesia Teaching/Discussion Notes: Instructed NPO after midnight before surgery,except medications with 15 cc of water. Medication instructions provided according to the PAT guidelines. History Surgery Operation Date: 09/21/21 07:15 Proposed Procedures p Right Total Knee Arthroplasty - Yonatan Watson MD Height/Weight Height: 5 ft 8 in Weight: 101.1 kg Allergies Allergy/AdvReac Type Severity Reaction Status Date / Time celecoxib AdvReac Severe stroke Verified 08/20/21 16:09 Medications Home Medications Medication Instructions Recorded Confirmed Last Taken atorvastatin 40 mg tablet 40 mg PO PM 08/20/21 08/20/21 Unknown clopidogrel 75 mg tablet 75 mg PO QAM 08/20/21 08/20/21 Unknown metoprolol succinate 25 mg 25 mg PO QAM 08/20/21 08/20/21 Unknown tablet,extended release 24 hr (Toprol XL) telmisartan 40 mg tablet 40 mg PO QAM 08/20/21 08/20/21 Unknown Past Medical History Medical History CAD (coronary artery disease) stents x2 (2014) CVA (cerebral vascular accident) Right cerebellar stroke (2017), no residual effects Dyslipidemia Hypertension Myocardial Infarction 2015 > stents x2 Osteoarthritis Exercise / Class Metabolic Activity II 4-5 Yardwork/Stairs/Walk up hill (one FS (no CP, no SOB)) Past Family History Family History Other No family history of adverse response to anesthesia Past Surgical History Surgical History History of ankle surgery Left ankle (50+ years ago) - no hardware History of cardiac cath 2015 > stents x2 History of colonoscopy History of heart artery stent 2014 > stents x2 History of removal of cyst off back History of tonsillectomy History of tooth extraction Past Anesthesia History No Hx of Anesthesia Complications and No Family Hx of Anesthesia Complications History of PONV No Hx of PONV and No Hx of Motion Sickness Social History Smoking Status: Current every day smoker tobacco type: cigarettes and smokeless tobacco Smoking cigarettes per day: 4-5 cigs/day (recreational) Do You Dip or Chew Tobacco: Yes (occasional chews tobacco (advised none DOS)) Hx Alcohol Use: No Hx Substance Use: No substance use type: does not use Review of Systems Patient denies chest pain, shortness of breath, dyspnea on exertion, fever, chills, cough, wheezing, palpitations. Physical Exam Vital Signs VITALS BP 144/83 P 69 TEMP 98.9 SP02 97%RA RESP 16 PHYSICAL Decreased cervical extension range of motion. Full TMJ range of motion. TMD 2.5 finger breaths Mallampati Score 3 Dentition: full upper plate Lungs: clear throughout to auscultation Cardiac: regular rate and rhythm, no murmurs noted Spine: normal Carotid arteries: negative bruit Extremities: no edema Lab Results Anesthesia Preop Results Results Anesthesia Widget: WBC 9.10 K/uL (4.8-10.8) 08/21/21 Hgb 14.5 g/dL (14.0-18.0) 08/21/21 Hct 44.1 % (42-52) 08/21/21 Plt 231 K/uL (130-400) 08/21/21 Na 138 mmol/L (136-145) 08/21/21 K 4.0 mmol/L (3.5-5.1) 08/21/21 Cl 105 mmol/L (98-107) 08/21/21 CO2 27 mmol/L (21-32) 08/21/21 BUN 13 mg/dl (6-23) 08/21/21 Creat 0.88 mg/dl (0.6-1.4) 08/21/21 Glucose Level 159 mg/dl (70-99(Fasting)) H 08/21/21 PT 10.9 Seconds (9.0-12.0) 08/21/21 PTT 28.8 Seconds (21.0-31.0) 08/21/21 INR 1.0 (0.9-1.1) 08/21/21 HA1c 6.3 % (4.5-5.6) H 08/21/21 Urine Color Yellow 08/21/21 Urine Appearance Clear (Clear) 08/21/21 Urine pH 5.5 (4.5-7.5) 08/21/21 Urine Specific [place]ing 1.020 (1.000-1.030) 08/21/21 Urine Protein Negative (Negative) 08/21/21 Urine Glucose (UA) Negative (Negative) 08/21/21 Urine Ketones Negative (Negative) 08/21/21 Urine Blood Negative (Negative) 08/21/21 Urine Nitrite Negative (Negative) 08/21/21 Urine Bilirubin Negative (Negative) 08/21/21 Urine Urobilinogen Negative (Negative) 08/21/21 Urine Leukocyte Esterase Negative (Negative) 08/21/21 Blood Type A Negative 08/21/21 Antibody Screen NEGATIVE 08/21/21 Testing Electrocardiogram Date: 08/21/21 SR with marked sinus arrhythmia at 66bpm. LAD. unconfirmed report. Report being forwarded to cardiology. Chest X-Ray Date: 08/21/21 Findings: + NAD Echocardiogram Date: 04/24/16 LVEF 55-60%. Mild cLVH. Posterior wall from base to mid segment is thinned, severely hypokinetic. No significant valvular disease. Basal septum is thickened and angulated consistent with sigmoid septum. Mild LAD. Cardiac Catheterization Date: 10/09/14 The coronary arteries have significant 1 vessel disease.There is a 100% mid Circumflex culprit lesion. There is non-obstructive disease in the LAD and dominant RCA. Successful percutaneous coronary intervention of the mid circumflex. The devices used included pre-dilating with a 2.0 x 12 mm balloon and placing a 3.0 x 12 mm drug eluting stent (Xience). The systemic blood pressure is normal. The left ventricular end diastolic pressure is mildly elevated.
--- NOTE | 2021-09-20 19:06 | History & Physical Report ---
Date of Service September 20, 2021 Assessment & Plan (1) Primary osteoarthritis of right knee: Plan: Treatment options discussed with patient. He has failed conservative measures and would like to proceed with surgical treatment. Risks, benefits and alternatives to surgery including but not limited to infection, DVT, pain, stiffness, need for revision surgery, damage to blood vessels, damage to nerves, PE, , were discussed with the patient and they wish to proceed. Plan on right total knee arthroplasty scheduled for [facility] on 09/21/[address] Watson. Will plan on outpatient PT post op. Will plano n aspirin 81mg twice daily post op for DVT prophylaxis. All questions answered. He will follow up post op. History of Present Illness Chief Complaint: Right knee pain Primary Care Provider: Sagar Jasso 76 yo male with PMHx significant for HTN, high cholesterol, CAD, hx of GA, CVA who presents with ongoing right knee pain. Pain interferes with his daily activities. He has failed conservative measures and would like to proceed with surgical intervention. Patient denies headaches, sweats, fevers, chills, double vision, blurred vision, cough, sore throat, dysphagia, chest pain, sob, wheezing, n/v/d/c, numbness, tingling, fatigue, urinary symptoms, mood disorders. ROS positive for right knee pain and stiffness. Allergies Allergy/AdvReac Type Severity Reaction Status Date / Time celecoxib AdvReac Severe stroke Verified 08/20/21 16:09 Home Medications Medication Instructions Recorded Confirmed Type atorvastatin 40 mg tablet 40 mg PO PM 08/20/21 08/20/21 History clopidogrel 75 mg tablet 75 mg PO QAM 08/20/21 08/20/21 History metoprolol succinate 25 mg 25 mg PO QAM 08/20/21 08/20/21 History tablet,extended release 24 hr (Toprol XL) telmisartan 40 mg tablet 40 mg PO QAM 08/20/21 08/20/21 History Past Med/Surg History Medical History CAD (coronary artery disease) stents x2 (2014) CVA (cerebral vascular accident) Right cerebellar stroke (2016), no residual effects Dyslipidemia Hypertension Myocardial Infarction 2015 > stents x2 Osteoarthritis Surgical History History of ankle surgery Left ankle (50+ years ago) - no hardware History of cardiac cath 2015 > stents x2 History of colonoscopy History of heart artery stent 2015 > stents x2 History of removal of cyst off back History of tonsillectomy History of tooth extraction Family History Other No family history of adverse response to anesthesia Social History Smoking Status: Current every day smoker Cigarettes Per Day: 4-5 cigs/day (recreational); Second Hand Exposure: No; Hx Alcohol Use: No Hx Substance Use: No Preferred Language: Czech Communication Ability: Effective Tax Manager Cpa Required: No Beliefs That Will Affect Care: None Current Living Situation: Spouse Feels Safe at Home: Yes Assistive Devices: Denture - Upper Review of Systems All systems reviewed & are unremarkable except as noted in HPI & below Physical Exam Constitutional: well developed and well nourished; no acute distress Eyes: PERRL, conjunctivae normal, anicteric sclerae ENMT: external ear and nose normal, oropharynx normal Neck: trachea midline, no thyromegaly Respiratory: normal respiratory effort, lungs clear to auscultation Cardiovascular: RRR, no murmur, no edema Musculoskeletal: Right knee: Varus alignment. Mild effusion. Tenderness medial joint line. Stable to valgus and varus stress. ROM 5-120 degrees. Skin: no rashes, warm and dry Neurologic: patellar DTR's 2+ bilat, sensation intact Psychiatric: A+Ox3, euthymic affect Results & Data ([facility]) Diagnostic Findings Right knee radiographs: Varus alignment. Severe endstage osteoarthritis, bone on bone medial compartment with periarticular osteophyte formation. Chondrocalcinosis.
[~2021-09-21 08:33] MED LIST changes: -ACET-1256 PO; +ACETAMINOPHEN 500 MG TAB PO SCH; +ALLERGY Noted to ORDERED Medication SCH; -ASPCH81X PO; -CELE1CAP30 PO; +FAMOTIDINE 20 MG TAB PO SCH; +GABAPENTIN 300 MG CAP PO SCH; -LPT40 PO; +LR 500ML BOLUS, THEN 15ML/HR IV SCH; +METOCLOPRAMIDE HCL 10 MG TABLET PO SCH; +MIDAZOLAM HCL 1 MG/ML 2ML VIAL ONE; -PLV75 PO; +PROPOFOL IV EMULSION 10 MG/ML 20 ML VIAL IV ONE; +ROPIVACAINE 0.5% HCL/PF 150 MG, BUPIVACAINE 0.75% MPF 20 ML, EPINEPHrine 30MG/30ML (OR ... INFIL SCH; -TELM80TA PO; -TPRSR/25 PO; +TRANEXAMIC ACID 1,000 MG **IV Intra-op IV SCH; +TRANEXAMIC ACID 1,000 MG **IV Pre-op IV SCH; +ceFAZolin 2000MG 2,000 MG/15 ML SYR IV SCH; +dexAMETHasone 4 MG TAB PO SCH
--- NOTE | 2021-09-21 08:53 | History & Physical Bridge Note ---
Date of Service September 21, 2021 History & Physical Bridge Note I have examined the patient, reviewed the History & Physical and in the interval since the performance of the History & Physical I have noted the following changes of clinical significance: no changes noted
[2021-09-21] MEDS ORDERED: ePHEDrine sulfate 50 MG/ML AMP IV PRN (09:58)
[2021-09-21] MEDS ORDERED: fentaNYL citrate 100 MCG/2 ML VIAL IV PRN (09:58)
[2021-09-21] MEDS ORDERED: ONDANSETRON INJ 2 MG/ML 2 ML VIAL IV PRN ×2 (09:58→16:40)
[2021-09-21] MEDS ORDERED: ATROPINE SULFATE 0.1 MG/ML 10ML SYR IV PRN (09:58)
[2021-09-21] MEDS ORDERED: ORTHO JOINT ANESTHETIC ONE (10:10)
[2021-09-21] MEDS ORDERED: BUPIVACAINE 0.5 % 5 MG/1 ML PF 10ML VIAL ONE (10:49)
[2021-09-21] MEDS ORDERED: LIDOCAINE 2% 2 ML VIAL/AMP(20MG/ML) INFIL ONE (12:33)
[2021-09-21] MEDS ORDERED: PROPOFOL IV EMULSION 10 MG/ML 20 ML VIAL IV ONE ×2 (12:40→13:28)
--- NOTE | 2021-09-21 13:26 | Operative Report ---
Post Operative Report Pre & Post Diagnosis Operation Date: 09/21/21 11:20 Pre-Op Diagnosis: Right Knee Osteoarthritis Post-Op Diagnosis: Right Knee Osteoarthritis I identified the patient and participated in the time-out.: Yes Procedure Operation Date: 09/21/21 11:20 Actual Procedures p Right Total Knee Arthroplasty(Right), superficial wound VAC Yonatan Watson MD Surgeon Yonatan Watson MD Drain Tile Machine Operator Krunal NARANJO Estimated Blood Loss 5 Findings Consistent with Post-Op Diagnosis Specimens Bone cuts Anesthesia Type MAC Spinal Regional Complications none Disposition Disposition: Recovery Room Indications 76-year-old male with chronic progressive osteoarthritis in his right knee failed conservative management. X-rays demonstrate he has a varus knee [id number] medial compartment and moderate patellofemoral OA Description of Procedure Patient taken to the operating room the size under spinal MAC regional block anesthesia. Patient was placed supine on the operating table. A pneumatic tourniquet was placed about the right upper thigh. The right lower extremity was prepped and draped in sterile fashion. Knee exam demonstrated 10 through 125 degrees range of motion with a varus knee no pseudolaxity no instability mild effusion. The leg was elevated exsanguinated with an Esmarch bandage and pneumatic tourniquet was raised to 300 millimeters of mercury. Skin incised sharply in longitudinal fashion. Subcutaneous flaps elevated. Incision was made through the medial retinaculum extending up in the mid third of the quadriceps tendon and down to the medial tibial tubercle. Intra-articular findings demonstrated tricompartmental osteoarthritis loose bodies chronic meniscus tear [id number] medial compartment with eburnated bone and ridging some bone loss intact cruciate ligaments. The HistoPathway triathlon total knee arthroplasty system was used. To expose the knee the infrapatellar fat pad was resected. The meniscal remnants and cruciate ligaments were resected. The anterior fat pad over the femur in the area of the anterior flange of the femoral component was resected. Lateral synovial bands released. Loose bodies resected. The femur was exposed. An intramedullary drill hole was made into the canal. A guide alisha was placed. Distal femoral cutting guide was adjusted to resect a 5 degree valgus cut with 10 millimeters distal femur resected. The knee was extended and a subperiosteal peel lateral release was performed around the patella. Patella width was measured and width was reproduced using a freehand cut technique and a 36 x 10 symmetrical patella component. The 3 drill holes were made and the excess lateral facet was beveled off to prevent any impingement. Attention was taken back to the femur which was exposed with retra ctors and the femoral sizing guide was pinned in position. The drill holes were placed in 3 of external rotation to match epicondylar axis. Femur sized for a 7 component. The 4-in-1 cutting block was placed and then the anterior posterior and chamfer cuts are made. The tibia was then subluxed. The external tibial cutting guide was just to make a perpendicular cut to the long axis of the tibia below the most deficient bone loss side. A lamina road boss was used and the flexion extension gaps were balanced. All posterior osteophytes removed. All meniscal remnants were resected. The tibia exposed and the trial tibial component size 7 was externally rotated in line with the tibial tubercle and pinned in position. The punch for stem was used. The notch cutting device was centered appropriately and the femoral notch cut was made. The femoral trial was inserted. Trial tibial inserts were placed and size 11 PS gave balanced ligaments through flexion and extension. Patella tracking was assessed. The patella tracked centrally. The trial components were then removed and the orthomix anesthetic cocktail was injected per protocol. The knee was then copiously irrigated with pulsatile lavage saline solution. Final components were then cemented with Simplex cement. Final components were Oralia triathlon 7 right posterior stabilized femoral component, size 7 primary tibial baseplate, X.3 polyethylene 7 x 11 mm tibial bearing insert, X.3 polyethylene 36 x 10 mm symmetrical patella. After the cement cured the Betadine soak was used for 3 minutes. Further pulsatile lavage irrigation was then performed and 2 Hemovac drains were brought out laterally. The quadriceps tendon and medial retinaculum were closed with figure of 8 #1 Vicryl sutures. The knee was taken through full range of motion and the repair was secure. Knee range of motion was 0 through 130 degrees. The subcutaneous tissues were closed with 2-0 Vicryl sutures. Skin was closed with taylor. Carmen and Acticoat superficial wound VAC was applied. The patient tolerated the procedure well. Krunal NARANJO was my physician intellectual property legal assistant who participated as real estate assistant and was involved in all aspects of the procedure including ,soft tissue retraction and instrument management and participated in the closing and application of superficial wound VAC and will participate in postoperative care of the patient. The patient tolerated the procedure well. I attest to the content of the Intraoperative Record and any orders documented therein. Any exceptions are noted below.
--- NOTE | 2021-09-21 15:06 | XRay Report ---
XR knee RT 1 or 2V routine CLINICAL HISTORY: Postoperative evaluation. COMPARISON: None FINDINGS: Alignment of the total right knee arthroplasty is anatomic. There is no periprosthetic fra cture. No unexpected radiopaque foreign bodies are present. There are drains and skin taylor. IMPRESSION: Expected findings following total right knee arthroplasty. ACT 112: Negative or not required by law. Electronically signed by: Dank Maya M.D. 09/21/2021 3:05 PM
[2021-09-21] MEDS ORDERED: TAMSULOSIN HCL 0.4 MG CAP PO PRN (16:40)
[2021-09-21] MEDS ORDERED: NALOXONE HCL 0.4 MG/1 ML VIAL/CARP IV PRN (16:40)
[2021-09-21] MEDS ORDERED: METOCLOPRAMIDE HCL INJ 5 MG/ML 2 ML VIAL IV PRN (16:40)
[2021-09-21] MEDS ORDERED: HYDROmorphone INJ 0.5 MG/0.5 ML SYR IV PRN (16:40)
[2021-09-21] MEDS ORDERED: MAGNESIUM HYDROXIDE SUSP 30 ML UDC PO PRN (16:40)
[2021-09-21] MEDS ORDERED: bisacodyL 10 MG SUPP PR PRN (16:40)
[2021-09-21] MEDS: SODIUM CHLORIDE 0.9% 1000ML 1,000 ML IV SCH (17:31)
--- NOTE | 2021-09-21 17:53 | Hospitalist Consultation ---
Date of Consultation September 21, 2021 Assessment & Plan (1) Primary osteoarthritis of right knee: POD #0 - s/p right TKR - Pain control, activity, and DVT prophylaxis per primary service - Encourage OOB as tolerated - Labs in AM (2) CAD (coronary artery disease): (3) Hypertension: (4) Dyslipidemia: Pt currently feeling well. Would resume home meds, including Plavix, as soon as okay with primary team. Pt reports that he still smokes for pleasure on occasion - offered nicotine patch while admitted but he declines. Pt seen and reviewed with collaborating physician, Dr. Mohr. Plan of care discussed and as outlined above. Thank you for this consultation. We will continue to follow this patient with you. A member of the [facility] Hospitalist Team is available 25/10 via [employer]. Please don't hesitate to reach out with questions. Woody Alexis PA-C History of Present Illness Reason for Consultation: Post-operative medical management Requesting Physician: Dr. Yonatan Watson Attending Physician: Yonatan Watson MD History of Present Illness This is a 76 y/o male with a PMH of CAD w/ prior NSTEMI, HTN, COPD, hyperlipidemia, prior CVA, PVD/PAD, and tobacco abuse who underwent right TKR today by Dr. Watson and for whom we have been consulted for post-op medical management. Pt follows with Dr. Lefty Jasso at [facility] for PCP and with CHIDI Casillas with [facility] in [place]. Pre-op EKG was stable compared to prior. Plavix was to be held for 7 days prior to surgery and then resumed post-operatively. Pt has significant OA and reports that he will ultimately need a left TKR as well but he decided to start with the right. 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 Currently, pt reports that he is feeling well without knee pain. Tolerated dinner without abd pain, N/V. He denies chest pain, SOB, JIM, dizziness. He has occasional back pain at baseline - no change from usual. Still with decreased sensation in lower extremity but improving. Able to move toes/foot. Allergies Allergy/AdvReac Type Severity Reaction Status Date / Time celecoxib AdvReac Severe stroke Verified 09/21/21 09:30 Home Medications Medication Instructions Recorded Confirmed Type atorvastatin 40 mg tablet (Lipitor) 40 mg PO PM 08/20/21 09/21/21 History clopidogrel 75 mg tablet 75 mg PO QAM 08/20/21 09/21/21 History metoprolol succinate 25 mg 25 mg PO QAM 08/20/21 09/21/21 History tablet,extended release 24 hr (Toprol XL) telmisartan 40 mg tablet (Micardis) 40 mg PO QAM 08/20/21 09/21/21 History Patient History Medical History (Updated 09/21/21 @ 18:20 by Christie Alexis PA-C) CAD (coronary artery disease) stents x2 (2014) CVA (cerebral vascular accident) Right cerebellar stroke (2016), no residual effects Dyslipidemia Hypertension Myocardial Infarction 2014 > stents x2 Osteoarthritis Surgical History History of ankle surgery Left ankle (50+ years ago) - no hardware History of cardiac cath 2014 > stents x2 History of colonoscopy History of heart artery stent 2014 > stents x2 History of removal of cyst off back History of tonsillectomy History of tooth extraction Family History Father Cancer Pancreatic CA Other No family history of adverse response to anesthesia Social History Smoking Status: Current every day smoker Cigarettes Per Day: 4-5 cigs/day (recreational); Second Hand Exposure: No; Do You Dip or Chew Tobacco: Yes (occasional chews tobacco (advised none DOS)); Tobacco Cessation Education Requested by Patient: No Hx Alcohol Use: No Hx Substance Use: No Preferred Language: Mongolian Communication Ability: Effective 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 Worker 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: No Beliefs That Will Affect Care: None Current Living Situation: Spouse Other Information That Helps Us Care for You: No Feels Safe at Home: Yes Safety Concerns: Feels Safe At This Time Assistive Devices: Denture - Upper Review of Systems Review of Systems: All systems reviewed & are unremarkable except as noted in HPI & below Constitutional: no fever, no chills and no sweats Eyes: no diplopia Ear, Nose, Mouth, Throat: no nasal congestion, no post nasal drip, no sore throat and no dysphagia Respiratory: no cough and no dyspnea Cardiovascular: no chest pain and no palpitations Gastrointestinal: no abdominal pain, no nausea, no vomiting and no diarrhea/loose stools Genitourinary: no dysuria or no hematuria Musculoskeletal: as per Subjective / HPI Integumentary: no rash and no yellowing of the skin Neurologic: no dizziness and no headache(s) Psychiatric: no depression and no anxiety Physical Exam Constitutional: well developed and well nourished; no acute distress Eyes: + anicteric sclerae ENMT: external ear and nose normal, oropharynx normal Neck: trachea midline Respiratory: no respiratory distress and no labored breathing Auscultation: lungs clear to auscultation bilaterally; no rales, no rhonchi and no wheezes Cardiovascular: Rate/Rhythm: regular rate and regular rhythm Vessels: radial pulses present Extremities: no pedal edema Gastrointestinal (Abdomen): Inspection/Auscultation: normal bowel sounds; abdomen not distended Percussion/Palpation: abdomen soft; abdomen nontender Musculoskeletal: Head/Neck/Chest: normocephalic, head atraumatic and neck supple right knee with dressing C/D/I, hemovac in place. Able to move toes/feet bilaterally Skin: no jaundice Neurologic: moves all extremities; not confused diminished sensation to light touch in right foot Psychiatric: A+Ox3, euthymic affect Results & Data Results & Data ([facility]) Vital Signs (Past 12 Hours) Vital Signs Temp Pulse Pulse Resp BP Pulse Ox 09/21/21 17:13 36.4 C L 62 16 116/71 96 09/21/21 16:41 36.1 C L 57 L 16 123/77 97 09/21/21 16:30 55 L 13 121/73 99 09/21/21 16:15 58 L 17 126/76 98 09/21/21 16:00 36.6 C 61 15 143/78 H 97 09/21/21 15:45 55 L 12 137/71 97 09/21/21 15:30 60 15 137/83 95 09/21/21 15:15 56 L 16 113/62 96 09/21/21 15:00 52 L 12 123/69 95 09/21/21 14:50 53 L 16 142/69 H 99 09/21/21 14:40 36.4 C L 56 L 16 114/62 97 09/21/21 14:30 52 L 16 117/66 99 09/21/21 14:20 54 L 15 111/53 L 99 09/21/21 14:10 63 15 126/64 98 09/21/21 14:00 36.5 C 58 L 17 104/57 L 99 09/21/21 09:33 37.0 C 65 20 142/100 H 97 Laboratory Results Laboratory Results - last 24 hr 09/21/21 08:48 SARS-CoV-2, RNA, NAAT NEGATIVE Medications Administered Sodium Chloride (Nss 1000ml) 1,000 mls @ 100 mls/hr IV .Q10H MYRON Stop: 09/22/21 06:00 Last Admin: 09/21/21 17:31 Dose: 100 mls/hr Documented by: [id number] Discontinued Medications Acetaminophen (Acetaminophen 500 Mg Tab) 1,000 mg PO PREOP MYRON Stop: 09/21/21 18:00 Last Admin: 09/21/21 09:48 Dose: 1,000 mg Documented by: [id number] Dexamethasone (Dexamethasone 4 Mg Tab) 8 mg PO PREOP MYRON Stop: 09/21/21 18:00 Last Admin: 09/21/21 09:48 Dose: 8 mg Documented by: [id number] Famotidine (Famotidine 20 Mg Tab) 20 mg PO PREOP MYRON Stop: 09/21/21 18:00 Last Admin: 09/21/21 09:47 Dose: 20 mg Documented by: [id number] Gabapentin (Gabapentin 300 Mg Cap) 300 mg PO PREOP MYRON Stop: 09/21/21 18:00 Last Admin: 09/21/21 09:47 Dose: 300 mg Documented by: [id number] Lactated Ringer's (Lr) 1,000 mls @ 15 mls/hr IV .Q24H MYRON Stop: 09/21/21 18:00 Last Infusion: 09/21/21 11:27 Dose: 0 mls/hr Documented by: [id number] Admin: 09/21/21 09:23 Dose: 15 mls/hr Documented by: [id number] Cefazolin Sodium (Ancef 2000mg) 2,000 mg in 15 mls @ 3.75 mls/min IV PREOP MYRON; Protocol Stop: 09/21/21 18:00 Last Admin: 09/21/21 11:27 Dose: 3.75 mls/min Documented by: [id number] Tranexamic Acid (Tranexamic Acid / 0.7% Nacl) 1,000 mg in 100 mls @ 600 mls/hr IV TODAY@0600 [facility] Stop: 09/21/21 18:00 Last Infusion: 09/21/21 11:17 Dose: 0 mls/hr Documented by: [id number] Admin: 09/21/21 11:07 Dose: 600 mls/hr Documented by: [id number] Tranexamic Acid (Tranexamic Acid / 0.7% Nacl) 1,000 mg in 100 mls @ 600 mls/hr IV TODAY@0600 [facility] Stop: 09/21/21 18:00 Last Infusion: 09/21/21 17:18 Dose: 0 mls/hr Documented by: [id number] Admin: 09/21/21 13:07 Dose: 600 mls/hr Documented by: [id number] Ropivacaine 150 mg/Bupivacaine HCl 20 ml/Epinephrine HCl 0.15 mg/Ketorolac Tromethamine 30 mg/Dexamethasone 4 mg/ Ketamine HCl 10 mg/ Clonidine HCl 100 mcg/ Sodium Chloride 88.35 mls @ 0 mls/hr INFIL TODAY@0600 [facility]; Protocol Stop: 09/21/21 06:01 Last Admin: 09/21/21 13:08 Dose: 93.35 mls/hr Documented by: [id number] Metoclopramide HCl (Metoclopramide Hcl 10 Mg Tablet) 10 mg PO PREOP [facility] Stop: 09/21/21 18:00 Last Admin: 09/21/21 09:47 Dose: 10 mg Documented by: [id number] Miscellaneous (Ortho Joint Anesthetic ) Confirm Administered Dose 1 ea .ROUTE .STK-MED ONE Stop: 09/21/21 10:11 Last Admin: 09/21/21 13:09 Dose: Not Given Documented by: [id number]
[2021-09-21] MEDS: ACETAMINOPHEN 500 MG TAB PO SCH ×2 (17:59→21:49)
[2021-09-21] MEDS: SENNA 8.6 MG TAB PO SCH (20:28)
[2021-09-21] MEDS: DOCUSATE SODIUM 100 MG CAP PO SCH (20:29)
[2021-09-21] MEDS: ceFAZolin 2000MG 2,000 MG/15 ML SYR IV SCH (20:29)
[2021-09-21] MEDS: ATORVASTATIN 40 MG TAB PO SCH (20:29)
[2021-09-21] MEDS: ASPIRIN 81 MG ECTAB PO SCH (20:29)
--- NOTE | 2021-09-21 23:59 | Anesthesiology Progress Note ---
Date of Service September 21, 2021 Anesthesia Post Procedure Vital Signs Vital Signs: Temp Pulse Pulse Resp BP Pulse Ox 09/21/21 23:06 97.3 F L 53 L 18 127/75 97 09/21/21 19:43 97.9 F 52 L 18 128/73 96 09/21/21 18:38 97.5 F L 57 L 16 126/70 97 09/21/21 17:40 98.8 F 57 L 16 116/71 95 09/21/21 17:13 97.5 F L 62 16 116/71 96 09/21/21 16:41 97.0 F L 57 L 16 123/77 97 09/21/21 16:30 55 L 13 121/73 99 09/21/21 16:15 58 L 17 126/76 98 09/21/21 16:00 97.9 F 61 15 143/78 H 97 09/21/21 15:45 55 L 12 137/71 97 09/21/21 15:30 60 15 137/83 95 09/21/21 15:15 56 L 16 113/62 96 09/21/21 15:00 52 L 12 123/69 95 09/21/21 14:50 53 L 16 142/69 H 99 09/21/21 14:40 97.5 F L 56 L 16 114/62 97 09/21/21 14:30 52 L 16 117/66 99 09/21/21 14:20 54 L 15 111/53 L 99 09/21/21 14:10 63 15 126/64 98 09/21/21 14:00 97.7 F 58 L 17 104/57 L 99 09/21/21 09:33 98.6 F 65 20 142/100 H 97 Transfer of Care Handoff Completed per policy Notes Mental Status: alert / awake / arousable and participated in evaluation Patient Amnestic to Procedure: Yes Nausea / Vomiting: adequately controlled Pain: adequately controlled Airway Patency, RR, SpO2: stable & adequate BP & HR: stable & adequate Hydration State: stable & adequate Neuraxial Anesthesia: was administered and sensory block is resolving Anesthetic Complications: no major complications apparent and Pt Satisfied with anesthetic care
[2021-09-22] MEDS: ceFAZolin 2000MG 2,000 MG/15 ML SYR IV SCH (03:25)
[2021-09-22] MEDS: SODIUM CHLORIDE 0.9% 1000ML 1,000 ML IV SCH (03:39)
[2021-09-22] MEDS: ACETAMINOPHEN 500 MG TAB PO SCH ×3 (05:54→21:34)
[2021-09-22] MEDS: oxyCODONE HCL IR 5 MG TAB (IMMEDIATE RELEASE) PO PRN ×2 (05:57→20:09)
--- NOTE | 2021-09-22 07:05 | Orthopedic Progress Note ---
Date of Service September 22, 2021 Assessment & Plan (1) Primary osteoarthritis of right knee: Plan: POD#1 Right TKA -PT/OT -Pain management as written -AM labs-leukocytosis likely reactive. Asymptomatic. Hemoglobin at 13.5 this morning -DVT prophylaxis-SCDs, TEDs, Asprin 81mg twice daily -D/C planning-dishcarge home with OPPT. Possible discharge later today depending on hemovac output. Admission and Anticipated Discharge Date Admission Date: September 21, 2021 Subjective Patient is resting in bed comfortably. doing well. Pain well controlled. No other complaints. Review of Systems Review of Systems: All systems reviewed & are unremarkable except as noted in Subjective Physical Exam Physical Exam: Right knee: Dressing is c/d/i. Toes mobile. No calf tenderness. Good dorsiflexion. Distally n/v status and sensation intact. Constitutional: WD/WN, vitals as above Results & Data ([facility]) Vital Signs (Past 12 Hours) Vital Signs Temp Pulse Resp BP Pulse Ox 09/22/21 03:27 36.3 C L 58 L 15 131/80 96 09/21/21 23:06 36.3 C L 53 L 18 127/75 97 09/21/21 19:43 36.6 C 52 L 18 128/73 96 Laboratory Results Lab Results 09/21/21 09/22/21 09/22/21 Range/Units 08:48 08:40 08:40 WBC 20.27 H (4.8-10.8) K/uL RBC 4.69 L (4.7-6.1) M/uL Hgb 13.5 L (14.0-18.0) g/dL Hct 41.1 L (42-52) % MCV 87.6 (80-100) fL MCH 28.8 (25-34) pg MCHC 32.8 (32-36) g/dL RDW Std Deviation 43.3 (36.4-46.3) fL RDW Coeff of Gary 13.6 (11.5-14.5) % Plt Count 257 (130-400) K/uL MPV 12.1 H (7.4-10.4) fL Sodium 139 (136-145) mmol/L Potassium 3.9 (3.5-5.1) mmol/L Chloride 107 (98-107) mmol/L Carbon Dioxide 25 (21-32) mmol/L Anion Gap 7 (3-11) BUN 16 (6-23) mg/dl Creatinine 0.92 (0.6-1.4) mg/dl Est Cr Clr Drug Dosing 76.3 ml/min Est GFR ( Amer) 92.7 ml/min Est GFR (Non-Af Amer) 79.9 ml/min BUN/Creatinine Ratio 17.4 (10-20) Glucose 149 H (70-99(Fasting)) mg/dl Calcium 9.8 (8.5-10.1) mg/dl SARS-CoV-2, RNA, NAAT NEGATIVE (NEGATIVE)
[2021-09-22] MEDS: CLOPIDOGREL BISULFATE 75 MG TAB PO SCH (08:24)
[2021-09-22] MEDS: METOPROLOL SUCC 25MG EXT REL TAB PO SCH (08:24)
[2021-09-22] MEDS: MULTIVITAMIN TAB PO SCH (08:24)
[2021-09-22] MEDS: DOCUSATE SODIUM 100 MG CAP PO SCH ×2 (08:24→20:05)
[2021-09-22] MEDS: TELMISARTAN 40 MG TAB PO SCH (08:25)
[2021-09-22] MEDS: ASPIRIN 81 MG ECTAB PO SCH ×2 (08:25→20:05)
[2021-09-22 09:15] LABS: Hematocrit (blood only) 41.1 % (42-52); Hemoglobin 13.5 g/dL (14.0-18.0); Mean Corpuscular Hemoglobin 28.8 pg (25-34); Mean Corpuscular Hgb Conc 32.8 g/dL (32-36); Mean Corpuscular Volume 87.6 fL (80-100); Mean Platelet Volume 12.1 fL (7.4-10.4); Platelet Count 257 K/uL (130-400); RDW Coefficient of Variation 13.6 % (11.5-14.5); RDW Standard Deviation 43.3 fL (36.4-46.3); Red Blood Count 4.69 M/uL (4.7-6.1); White Blood Count 20.27 K/uL (4.8-10.8)
[2021-09-22 09:43] LABS: BUN Creatinine Ratio 17.4 (10-20); Calcium 9.8 mg/dl (8.5-10.1); Creatinine Clr Calc Pharmacy 76.3 ml/min; Est GFR (African American) 92.7 ml/min; Est GFR (Non-African American) 79.9 ml/min; Potassium 3.9 mmol/L (3.5-5.1)
[2021-09-22] MEDS: SENNA 8.6 MG TAB PO SCH (20:05)
[2021-09-22] MEDS: ATORVASTATIN 40 MG TAB PO SCH (20:05)
--- NOTE | 2021-09-22 23:53 | Hospitalist Progress Note ---
Date of Service September 22, 2021 Assessment & Plan (1) Primary osteoarthritis of right knee: Plan: POD #1 - s/p right TKR performed by Dr. Watson No postop complication Continue pain control Incentive spiromety PT/OT eval Fall precaution Hgb stable (2) CAD (coronary artery disease): (3) Hypertension: (4) Dyslipidemia: Plan: stable Plan: stable Admission and Anticipated Discharge Date Admission Date: September 21, 2021 Subjective Pt was seen and examined for postop follow Sitting in chair with no acute distress Denies an chest pain, palpitation, dizziness and SOB Review of Systems Review of Systems: All systems reviewed & are unremarkable except as noted in Subjective Physical Exam Physical Exam: General- No acute distress Head- atraumatic Eyes- PERRL, EOMI, ENT- oropharynx clear Neck- supple, no JVD Lungs- clear to auscultation Heart- regular rhythm; no murmur Abdomen- normal bowel sounds, soft, nontender Extremities- no calf tenderness Neuro- alert, oriented x 3; PERRL, EOMI; no facial palsy; no dysarthria Skin- warm & dry Results & Data Results & Data ([facility]) Vital Signs (Past 12 Hours) Vital Signs Temp Pulse Resp BP Pulse Ox 09/22/21 14:42 36.4 C L 66 16 130/72 96 09/22/21 12:19 36.6 C 54 L 16 159/79 H 96
[2021-09-23] MEDS: ACETAMINOPHEN 500 MG TAB PO SCH (05:53)
--- NOTE | 2021-09-23 06:56 | Orthopedic Progress Note ---
Date of Service September 23, 2021 Assessment & Plan (1) Primary osteoarthritis of right knee: Plan: POD#2 Right TKA -PT/OT -Pain management as written -AM labs-leukocytosis likely reactive. Asymptomatic. Hemoglobin at 13.5 this morning -DVT prophylaxis-SCDs, TEDs, Asprin 81mg twice daily -D/C planning-dishcarge home with OPPT. Plan on discharge home today. Admission and Anticipated Discharge Date Admission Date: September 21, 2021 Subjective Patient is resting in bed comfortably. He is easily awoken. Pain is increased from yesterday however still well controlled. He has no other complaints. Denies chest pain, shortness of breath, dizziness, nausea/vomiting/diarrhea. Review of Systems 2 Review of Systems: All systems reviewed & are unremarkable except as noted in Subjective Physical Exam Physical Exam: Right knee: Dressing is c/d/i. Toes mobile. No calf tenderness. Good dorsiflexion. Distally n/v status and sensation intact. Constitutional: WD/WN, vitals as above Results & Data ([facility]) Vital Signs (Past 12 Hours) Vital Signs Temp Pulse Resp BP Pulse Ox 09/22/21 23:32 36.6 C 70 18 119/71 95
[2021-09-23] MEDS: DOCUSATE SODIUM 100 MG CAP PO SCH (07:41)
[2021-09-23] MEDS: TELMISARTAN 40 MG TAB PO SCH (07:41)
[2021-09-23] MEDS: METOPROLOL SUCC 25MG EXT REL TAB PO SCH (07:41)
[2021-09-23] MEDS: MULTIVITAMIN TAB PO SCH (07:41)
[2021-09-23] MEDS: CLOPIDOGREL BISULFATE 75 MG TAB PO SCH (07:41)
[2021-09-23] MEDS: ASPIRIN 81 MG ECTAB PO SCH (07:41)
--- NOTE | 2021-09-23 12:58 | Discharge Summary ---
Date of Service September 23, 2021 Admission HPI Per Admitting Provider 76 yo male with PMHx significant for HTN, high cholesterol, CAD, hx of MO, CVA who presents with ongoing right knee pain. Pain interferes with his daily activities. He has failed conservative measures and would like to proceed with surgical intervention. Patient denies headaches, sweats, fevers, chills, double vision, blurred vision, cough, sore throat, dysphagia, chest pain, sob, wheezing, n/v/d/c, numbness, tingling, fatigue, urinary symptoms, mood disorders. ROS positive for right knee pain and stiffness. Admission Exam Per Admitting Provider Constitutional: well developed and well nourished; no acute distress Eyes: PERRL, conjunctivae normal, anicteric sclerae ENMT: external ear and nose normal, oropharynx normal Neck: trachea midline, no thyromegaly Respiratory: normal respiratory effort, lungs clear to auscultation Cardiovascular: RRR, no murmur, no edema Musculoskeletal: Right knee: Varus alignment. Mild effusion. Tenderness medial joint line. Stable to valgus and varus stress. ROM 5-120 degrees. Skin: no rashes, warm and dry Neurologic: patellar DTR's 2+ bilat, sensation intact Psychiatric: A+Ox3, euthymic affect Principal Diagnosis Right knee osteoarthritis Discharge Exam Right knee: Dressing is c/d/i. Toes mobile. No calf tenderness. Good dorsiflexion. Distally n/v status and sensation intact. Constitutional WD/WN, vitals as above Discharge Data Allergies Allergy/AdvReac Type Severity Reaction Status Date / Time celecoxib AdvReac Severe stroke Verified 09/21/21 09:30 Consultations 09/21/21 05:00 Consult Hospitalist Routine Procedures Performed Operation Date: 09/21/21 11:20 Actual Procedures p Right Total Knee Arthroplasty(Right) - Yonatan Watson MD Ordered Studies 09/21/21 05:00 US - OR guided needle placemen Routine Hospital Course (1) Primary osteoarthritis of right knee: POD#2 Right TKA -PT/OT -Pain management as written -AM labs-leukocytosis likely reactive. Asymptomatic. Hemoglobin at 13.5 yesterday -DVT prophylaxis-SCDs, TEDs, Asprin 81mg twice daily -D/C planning-dishcarge home with OPPT. Plan on discharge home today. Lab Results 09/21/21 09/22/21 09/22/21 Range/Units 08:48 08:40 08:40 WBC 20.27 H (4.8-10.8) K/uL RBC 4.69 L (4.7-6.1) M/uL Hgb 13.5 L (14.0-18.0) g/dL Hct 41.1 L (42-52) % MCV 87.6 (80-100) fL MCH 28.8 (25-34) pg MCHC 32.8 (32-36) g/dL RDW Std Deviation 43.3 (36.4-46.3) fL RDW Coeff of Gary 13.6 (11.5-14.5) % Plt Count 257 (130-400) K/uL MPV 12.1 H (7.4-10.4) fL Sodium 139 (136-145) mmol/L Potassium 3.9 (3.5-5.1) mmol/L Chloride 107 (98-107) mmol/L Carbon Dioxide 25 (21-32) mmol/L Anion Gap 7 (3-11) BUN 16 (6-23) mg/dl Creatinine 0.92 (0.6-1.4) mg/dl Est Cr Clr Drug Dosing 76.3 ml/min Est GFR ( Amer) 92.7 ml/min Est GFR (Non-Af Amer) 79.9 ml/min BUN/Creatinine Ratio 17.4 (10-20) Glucose 149 H (70-99(Fasting)) mg/dl Calcium 9.8 (8.5-10.1) mg/dl SARS-CoV-2, RNA, NAAT NEGATIVE (NEGATIVE) Total Time Total Time Spent Total Time Spent (In Minutes): 20 Discharge Plan Discharge Items Patient Disposition: Home - Self-Care Reason For Visit: Right Knee Osteoarthritis Discharge Diagnosis: Right knee oa Activity: Per Instructions section Non-emergency contact: Surgeon Call non-emergency contact if: you have any medication questions, your pain is not controlled, your pain is worsening, your pain is concerning for you, you have a fever, your temperature is above 101, your wound has increased redness and your wound has increased drainage Follow-up/Referrals: Sagar Jasso M.D. [Primary Care Provider] - Diet: Regular Addtl Attending Provider Instructions: ACTIVITY RECOMMENDATIONS: SELF CARE INSTRUCTIONS AFTER TOTAL KNEE REPLACEMENT A. You may need to continue a physical therapy program after discharge from the hospital. There are several options available to you. Your doctor will assist you in selecting the best one for you. 1. An out-patient facility 2 to 3 times a week for therapy or home therapy. 2. Continue working on all exercises taught to you in the hospital. Your goals should be to increase bending of your knee to 90 degrees and beyond and to fully straighten your knee. B. You may progress at your own pace from walking with a walker or crutches to a cane; then to no assistive devices. C. Make walking a part of your daily routine. Be up as much as comfortable with rest periods throughout the day. Rest with leg elevation is very important. Use the ice wrap frequently for the first 3-4 weeks. D. There are no restrictions on activities. 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 E. Wear the long elastic stockings (KELSEY hose) 20 hours a day for 2 weeks after surgery. They can be removed several times a day for laundering and for a bath. F. You may shower, no tub baths until cleared by your doctor. SPECIAL CARE INSTRUCTIONS: VERY IMPORTANT TO READ AND REVIEW A. There are a few signs you need to watch for after you are home. Call [facility] if you notice any of the followin. Increased severe knee pain. Some pain is expected especially when you exercise. 2. Increased swelling in your leg or knee; pain or swelling of the calf muscle in either lower leg. 3. Any fluid drainage from the incision. 4. Shortness of breath or chest pain. B. Please call [facility] at if you have any concerns or questions about your operation or recovery. The doctor or his nurse will return your call promptly. C. You must take antibiotics before dental work, bladder, bowel or other surgery. Your doctor will provide you with a permanent care to carry describing this precaution. IMPORTANT: * REMEMBER TO TAKE ASPIRIN, 81 MG, TWICE DAILY FOR 4 WEEKS UNLESS OTHERWISE DIRECTED. THIS IS YOUR BLOOD THINNER. * HIGH RISK PATIENTS MAY BE PRESCRIBED A STRONGER BLOOD THINNER. THIS WILL BE PROVIDED AT DISCHARGE. * CALL IF INCREASED PAIN, REDNESS, DRAINAGE OR FEVER GREATER THAT 101. * WEAR KELSEY HOSE 20 HOURS PER DAY FOR 2 WEEKS. This is a large suction dressing covering your incision. This will help pull any excess drainage from the wound and allow your incision to heal properly. You may shower with this if you can keep the unit outside of the shower. If any bleeding or leakage is noted please call your doctor's office. This will remain on your incision for 7 days and then should be removed. This can be done yourself or by the home nursing staff if applicable. The entire unit is disposable once removed. Once removed, keep incision clean and dry. If redness or drainage is noted, please call your surgeon. IF INCISION IS LEAKING THROUGH DRESSING, CALL THE OFFICE . FOLLOW UP VISIT: If appointment is not already scheduled: Please call [facility] to make a follow-up appointment for 2 weeks after your surgery at . Stand-Alone Forms: [facility], Smoking Cessation Medications and DC Order Prescriptions: New aspirin 81 mg Tablet,Delayed Release (Dr/Ec) 81 mg PO BID Qty: 60 RF: 0 acetaminophen [Tylenol Extra Strength] 500 mg Tablet 1,000 mg PO Q8 Qty: 60 RF: 0 oxycodone 5 mg Tablet 5 - 10 mg PO .Q4h-6h MDD 6 PRN (Reason: pain) Qty: 30 RF: 0 Continued atorvastatin [Lipitor] 40 mg Tablet 40 mg PO PM RF: 0 clopidogrel 75 mg Tablet 75 mg PO QAM RF: 0 telmisartan [Micardis] 40 mg Tablet 40 mg PO QAM RF: 0 metoprolol succinate [Toprol XL] 25 mg Tablet Extended Release 24 Hr 25 mg PO QAM RF: 0 Discharge Orders: Discharge Order (Routine); Ordered 09/23/21 Ordered By: Liam Vann/Other Patient Handouts: Knee Replacement Total Dc Admission Data Admit Date/Time: 09/21/21 14:00 Attending Provider: Yonatan Watson Admit Provider: Yonatan Watson Primary Care Provider: Sagar Jasso Other Providers: Margarita Toure ; Jorge Mohr ; Kamila Jacobs Other Interventions: Discharge Summary Assessment (RN) Last Done: 09/23/21 11:27
== END 2021-09-23 12:00 | disposition home or self-care (01) ==
LOC: ASU 08:33 → 3N 08:33
DX: Z79.02 Long term (current) use of antithrombotics/antiplatelets; E78.5 Hyperlipidemia, unspecified; I10 Essential (primary) hypertension; Z95.5 Presence of coronary angioplasty implant and graft; I25.10 Atherosclerotic heart disease of native coronary artery without angina pectoris; X58.XXXA Exposure to other specified factors, initial encounter; Z79.899 Other long term (current) drug therapy; M17.11 Unilateral primary osteoarthritis, right knee; F17.210 Nicotine dependence, cigarettes, uncomplicated; I25.2 Old myocardial infarction; Z88.6 Allergy status to analgesic agent; M79.4 Hypertrophy of (infrapatellar) fat pad; M65.861 Other synovitis and tenosynovitis, right lower leg; S83.241A Other tear of medial meniscus, current injury, right knee, initial encounter

== ENCOUNTER 2022-01-13 07:35 | Observation (INO) ==
--- NOTE | 2022-01-05 13:59 | Anesthesiology Consultation ---
Date of Service January 05, 2022 Assessment & Plan (1) Encounter for pre-operative examination: - cardiology 09/09/21 [facility]: "...pre op clearance for knee surgery...10/07/14 NSTEMI with single vessel circ 100% lesion-opened with ROBERTO-echo with small lateral wall motion abn with normal LV function...CAD-no chest pain-no EKG changes-RCRI risk is 1% for surgery...proceed with surgery, low cardiac risk..." - Outpatient joint assessment: Patient is currently scheduled for inpatient pathway. If re-evaluated pending system levels during current pandemic/surgeon requests outpatient pathway, patient is not recommended candidate for outpatient joint program from anesthesia standpoint pending surgeon's office assessment of pt motivation/support/completion of same day joint program preop requirements. Chart Review Chart Review: Acceptable Risk for Surgery and Patient NOT seen in Pre Admission Testing History Surgery Operation Date: 01/13/22 13:45 Proposed Procedures p Left Total Knee Arthroplasty - Yonatan Watson MD Height/Weight Height: 5 ft 9 in Weight: 94.347 kg Allergies Allergy/AdvReac Type Severity Reaction Status Date / Time celecoxib AdvReac Severe stroke Verified 01/05/22 12:05 Medications Home Medications Medication Instructions Recorded Confirmed Last Taken atorvastatin 40 mg tablet (Lipitor) 40 mg PO HS 08/20/21 01/05/22 09/20/21 21:30 clopidogrel 75 mg tablet 75 mg PO QAM 08/20/21 01/05/22 09/14/21 metoprolol succinate 25 mg 25 mg PO QAM 08/20/21 01/05/22 09/21/21 07:30 tablet,extended release 24 hr (Toprol XL) telmisartan 40 mg tablet (Micardis) 40 mg PO QAM 08/20/21 01/05/22 09/20/21 08:00 aspirin 81 mg tablet,delayed 81 mg PO BID #60 tabs 09/22/21 01/05/22 Unknown release acetaminophen 500 mg tablet 1,000 mg PO Q8H 01/05/22 01/05/22 Unknown (Tylenol Extra Strength) oxycodone 5 mg tablet 5 - 10 mg PO UD PRN pain 01/05/22 01/05/22 Unknown Past Medical History Medical History (Updated 01/05/22 @ 13:53 by Ryanne Monsalve PA-C) CAD (coronary artery disease) stents x2 (2015) CVA (cerebral vascular accident) Right cerebellar stroke (2017), no residual effects Dyslipidemia Hypertension Myocardial Infarction 2015 > stents x2 Past Family History Family History Father Cancer Pancreatic CA Other No family history of adverse response to anesthesia Past Surgical History Surgical History History of ankle surgery Left ankle (50+ years ago) - no hardware History of cardiac cath 2015 > stents x2; done in [facility]; f/u justin jim PA-C, Tricia Barraza History of colonoscopy History of heart artery stent 2014 > stents x2; done in [facility]; f/u tricia hardy History of removal of cyst off back History of tonsillectomy History of tooth extraction Hx of total knee replacement rt. Social History Smoking Status: Former smoker tobacco type: cigarettes Smoking cigarettes per day: 4-5 cigs/day (recreational) Do You Dip or Chew Tobacco: Yes (advised) Smoking End Date: quit "a couple weeks ago" Hx Alcohol Use: Yes ("not for the last 22 years") Hx Substance Use: No substance use type: does not use Lab Results Anesthesia Preop Results Results Anesthesia Widget: WBC 9.48 K/ul (4.8-10.8) 12/22/21 Hgb 14.8 g/dl (14.0-18.0) 12/22/21 Hct 45.1 % (40.1-51.0) 12/22/21 Plt 309 K/uL (130-400) 12/22/21 Na 138 mmol/L (136-145) 12/22/21 K 4.2 mmol/L (3.5-5.1) 12/22/21 Cl 106 mmol/L (98-107) 12/22/21 CO2 26 mmol/L (21-32) 12/22/21 BUN 16 mg/dl (6-23) 12/22/21 Creat 0.90 mg/dl (0.6-1.4) 12/22/21 Glucose Level 114 mg/dl (70-99(Fasting)) H 12/22/21 PT 10.9 Seconds (9.0-12.0) 12/22/21 PTT 30.6 Seconds (21.0-31.0) 12/22/21 INR 1.0 (0.9-1.1) 12/22/21 HA1c 6.2 % (4.5-5.6) H 12/22/21 Urine Color Yellow 12/22/21 Urine Appearance Clear (Clear) 12/22/21 Urine pH 5.5 (4.5-7.5) 12/22/21 Urine Specific Imperial 1.022 (1.000-1.030) 12/22/21 Urine Protein Negative (Negative) 12/22/21 Urine Glucose (UA) Negative (Negative) 12/22/21 Urine Ketones Trace (Negative) H 12/22/21 Urine Blood Negative (Negative) 12/22/21 Urine Nitrite Negative (Negative) 12/22/21 Urine Bilirubin Negative (Negative) 12/22/21 Urine Urobilinogen Negative (Negative) 12/22/21 Urine Leukocyte Esterase Negative (Negative) 12/22/21 Blood Type A Negative 12/22/21 Antibody Screen NEGATIVE 12/22/21 Testing Electrocardiogram Date: 09/09/21 Sinus rhythm with 1st degree AV block with premature atrial complexes in a pattern of bigeminy, rate 61 bpm Chest X-Ray Date: 08/21/21 No acute process. Other Testing LE duplex 11/30/21 1. Moderate atherosclerotic plaque within the left lower extremity. 2. No elevated velocities to indicate a stenosis by sonography however transition from triphasic to monophasic flow within the distal left superficial femoral artery raises the possibility of an sonographically occult stenosis. Dampened monophasic flow within the left calf vessels. MRI brain 11/20/2018 IMPRESSION: 1. No acute intracranial findings. 2. No change in size of a 1.4 cm mildly enhancing lesion within the fourth ventricle since initial MRI of October 15, 2013. Interval decrease in enhancement. This favors an ependymoma. 3. 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
--- NOTE | 2022-01-12 11:46 | History & Physical Report ---
Date of Service January 12, 2022 Assessment & Plan (1) Primary osteoarthritis of left knee: Plan: Treatment options discussed with patient. He has failed conservative measures and would like to proceed with surgical treatment. Risks, benefits and alternatives to surgery including but not limited to infection, DVT, pain, stiffness, need for revision surgery, damage to blood vessels, damage to nerves, PE, , were discussed with the patient and they wish to proceed. Plan on left total knee arthroplasty scheduled for [facility] on 01/13/[address] Watson. Will plan on outpatient PT post op. Will plan on aspirin 81mg twice daily post op for DVT prophylaxis. All questions answered. He will follow up post op. History of Present Illness Chief Complaint: Left knee pain Primary Care Provider: Sagar Jasso 76 yo male with PMHx significant for HTN, high cholesterol, CAD, hx of LA, CVA, PAD who presents with ongoing left knee pain. Pain interferes with his daily activities. He has failed conservative measures and would like to proceed with surgical intervention. Has done well with prior right TKA. Patient denies headaches, sweats, fevers, chills, double vision, blurred vision, cough, sore throat, dysphagia, chest pain, sob, wheezing, n/v/d/c, numbness, tingling, fatigue, urinary symptoms, mood disorders. ROS positive for left knee pain and stiffness. Allergies Allergy/AdvReac Type Severity Reaction Status Date / Time celecoxib AdvReac Severe stroke Verified 01/13/22 08:03 Home Medications Medication Instructions Recorded Confirmed Type atorvastatin 40 mg tablet (Lipitor) 40 mg PO HS 08/20/21 01/13/22 History clopidogrel 75 mg tablet (Plavix) 75 mg PO [facility] 08/20/21 01/13/22 History metoprolol succinate 25 mg 25 mg PO QAM 08/20/21 01/13/22 History tablet,extended release 24 hr (Toprol XL) telmisartan 40 mg tablet (Micardis) 40 mg PO QA 08/20/21 01/13/22 History aspirin 81 mg tablet,delayed 81 mg PO BID #60 tabs 09/22/21 01/13/22 Rx release acetaminophen 500 mg tablet 1,000 mg PO Q8H 01/05/22 01/13/22 History (Tylenol Extra Strength) oxycodone 5 mg tablet 5 - 10 mg PO UD PRN pain 01/05/22 01/13/22 History Past Med/Surg History Medical History CAD (coronary artery disease) stents x2 (2014) CVA (cerebral vascular accident) Right cerebellar stroke (2016), no residual effects Dyslipidemia Hypertension Myocardial Infarction 2015 > stents x2 Surgical History History of ankle surgery Left ankle (50+ years ago) - no hardware History of cardiac cath 2015 > stents x2; done in [facility]; f/u justin jim PA-C, Tricia Barraza History of colonoscopy History of heart artery stent 2015 > stents x2; done in [facility]; f/u tricia hardy History of removal of cyst off back History of tonsillectomy History of tooth extraction Hx of total knee replacement rt. Family History Father Cancer Pancreatic CA Other No family history of adverse response to anesthesia Social History Smoking Status: Former smoker Cigarettes Per Day: 4-5 cigs/day (recreational); Smoking End Date: quit "a couple weeks ago"; Second Hand Exposure: No; Do You Dip or Chew Tobacco: Yes (advised); Tobacco Cessation Education Requested by Patient: No Hx Alcohol Use: Yes ("not for the last 22 years") Hx Substance Use: No Preferred Language: Malagasy Communication Ability: Effective Athletic Coordinator Required: No Beliefs That Will Affect Care: None Current Living Situation: Spouse Other Information That Helps Us Care for You: No Feels Safe at Home: Yes Safety Concerns: Feels Safe At This Time Assistive Devices: None Review of Systems All systems reviewed & are unremarkable except as noted in HPI & below Physical Exam Constitutional: well developed and well nourished; no acute distress Eyes: PERRL, conjunctivae normal, anicteric sclerae ENMT: external ear and nose normal, oropharynx normal Neck: trachea midline, no thyromegaly Respiratory: normal respiratory effort, lungs clear to auscultation Cardiovascular: RRR, no murmur, no edema Musculoskeletal: Left knee: Varus alignment. Mild effusion. Tenderness medial joint line. Stable to valgus and varus stress. ROM 20-95 degrees. Skin: no rashes, warm and dry Neurologic: patellar DTR's 2+ bilat, sensation intact Psychiatric: A+Ox3, euthymic affect Results & Data ([place]) Diagnostic Findings Left knee radiographs demonstrate severe tricompartmental osteoarthritis, bone on bone medial compartment with chondrocalcinosis medial and lateral compartment.
[~2022-01-13 07:35] MED LIST changes: -ALLERGY Noted to ORDERED Medication SCH; +BUPIVACAINE 0.5 % 5 MG/1 ML MPF 30ML VIAL ONE; +EPINEPHrine INJ 1 MG/ML AMP ONE; -MIDAZOLAM HCL 1 MG/ML 2ML VIAL ONE; -PROPOFOL IV EMULSION 10 MG/ML 20 ML VIAL IV ONE; +ROPIVACAINE 0.5% 5 MG/ML 30 ML VIAL ONE; -ROPIVACAINE 0.5% HCL/PF 150 MG, BUPIVACAINE 0.75% MPF 20 ML, EPINEPHrine 30MG/30ML (OR ... INFIL SCH; +ROPIVACAINE 0.5% HCL/PF 150 MG, BUPIVACAINE 0.75% MPF 20 ML, EPINEPHrine 30MG/30ML (OR ... INSTIL SCH
[2022-01-13] MEDS ORDERED: MIDAZOLAM HCL 1 MG/ML 2ML VIAL ONE ×2 (08:11)
[2022-01-13] MEDS ORDERED: PROPOFOL IV EMULSION 10 MG/ML 20 ML VIAL IV ONE ×3 (09:02)
[2022-01-13] MEDS ORDERED: LIDOCAINE 2% 2 ML VIAL/AMP(20MG/ML) INFIL ONE (09:03)
[2022-01-13] MEDS ORDERED: fentaNYL citrate 100 MCG/2 ML VIAL ONE (09:26)
--- NOTE | 2022-01-13 09:50 | History & Physical Bridge Note ---
Date of Service January 13, 2022 History & Physical Bridge Note I have examined the patient, reviewed the History & Physical and in the interval since the performance of the History & Physical I have noted the following changes of clinical significance: no changes noted
[2022-01-13] MEDS ORDERED: ORTHO JOINT ANESTHETIC ONE (09:53)
[2022-01-13] MEDS ORDERED: ePHEDrine sulfate 50 MG/ML AMP IV PRN (10:47)
[2022-01-13] MEDS ORDERED: ATROPINE SULFATE 0.1 MG/ML 10ML SYR IV PRN (10:47)
[2022-01-13] MEDS ORDERED: PHENYLEPHRINE HCL 10 MG/ML VIAL ONE (11:10)
[2022-01-13] MEDS ORDERED: ePHEDrine sulfate 50 MG/ML AMP ONE (11:10)
--- NOTE | 2022-01-13 12:55 | Post Operative Brief Note ---
Immediate Post Op Note v1 Date of Surgery January 13, 2022 Pre & Post Diagnosis Operation Date: 01/13/22 09:40 Pre-Op Diagnosis: Bilateral Osteoarthritis of Knee Post-Op Diagnosis: Bilateral Osteoarthritis of Knee I identified the patient and participated in the time-out.: Yes Procedure Operation Date: 01/13/22 09:40 Actual Procedures p Left Total Knee Arthroplasty(Left) - Yonatan Watson MD Surgeon Yonatan Watson MD Home Care Physical Therapist Uriah NARANJO and Krunal NARANJO Estimated Blood Loss 20 Findings Consistent with Post-Op Diagnosis Specimens Bone cuts Drains Hemovac Drain Anesthesia Type MAC Spinal Regional Complications none Disposition Disposition: Recovery Room Overlapping Procedure I was immediately available: during the entire case.
--- NOTE | 2022-01-13 13:07 | Operative Report ---
Post Operative Report Pre & Post Diagnosis Operation Date: 01/13/22 09:40 Pre-Op Diagnosis: Bilateral Osteoarthritis of Knee Post-Op Diagnosis: Bilateral Osteoarthritis of Knee I identified the patient and participated in the time-out.: Yes Procedure Operation Date: 01/13/22 09:40 Actual Procedures p Left Total Knee Arthroplasty(Left) - Yonatan Watson MD Surgeon Yonatan Watson MD Architecture Instructor Uriah NARANJO and Krunal NARANJO Estimated Blood Loss 20 Findings Consistent with Post-Op Diagnosis Specimens Bone cuts Drains 2 Hemovac Anesthesia Type MAC Spinal Regional Complications none Disposition Disposition: Recovery Room Indications 76-year-old male with severe end-stage osteoarthritis of the left knee. As part of a staged total knee replacement he had a right knee replaced in the past and did well recently. He does have peripheral vascular disease in the left knee and was proceeding with a tourniquet left total knee replacement. Patient was cleared by vascular surgery to have the procedure. Description of Procedure Patient taken to the operating room the size under spinal MAC regional block anesthesia. Patient was placed supine on the operating table. A pneumatic tourniquet was placed loosely about the left upper thigh. The left lower extremity was prepped and draped in sterile fashion with ChloraPrep. Knee exam demonstrated limited range of motion with 15 through 95 degrees range of motion. Significant varus knee with a flexion contracture and no significant effusion. Patient had pink toes with good capillary refill but diminished pulses. The knee was flexed and the skin incised sharply in longitudinal fashion. Subcutaneous flaps elevated. Meticulous hemostasis was obtained using electrocautery device and aqua mantis. The incision was made through the medial retinaculum extending up in the mid third of the quadriceps tendon and down to the medial tibial tubercle. Most the bleeding encounter was proximal and down in the fat pad and tibial tubercle and these areas were cauterized with the aqua mantis and the electrocautery as needed. Intra-articular findings demonstrated severe tricompartmental osteoarthritis with calcification consistent with prior steroid injections were calcium pyrophosphate disease. 2 round irregular appearing loose bodies over a centimeter in size were removed anteriorly. The [email or web address] triathlon total knee arthroplasty system was used. To expose the knee the infrapatellar fat pad was resected. The meniscal remnants and cruciate ligaments were resected. The anterior fat pad over the femur in the area of the anterior flange of the femoral component was resected. All vessels were carefully cauterized in this area. Lateral synovial bands release. The femur was exposed. An intramedullary drill hole was made into the canal. A guide alisha was placed. Distal femoral cutting guide was adjusted to resect a 5 degree valgus cut with 10 millimeters distal femur resected. The knee was extended and a subperiosteal peel lateral release was performed around the patella. Patella had grade 4 wear on the lateral facet and circumferential osteophytes. Patella width was measured and width was reproduced using a freehand cut technique and a 36 x 10 symmetrical patella component. The 3 drill holes were made and the excess lateral facet was beveled off to prevent any impingement. Attention was taken back to the femur which was exposed with retractors and the femoral sizing guide was pinned in position. The drill holes were placed in 3 of external rotation to match epicondylar axis. Femur sized for a 7 left component. The 4-in-1 cutting block was placed and then the anterior posterior and chamfer cuts are made. The tibia was then subluxed. The external tibial cutting guide was just to make a perpendicular cut to the long axis of the tibia below the most deficient bone loss side. A lamina cloth spreader was used and the flexion extension gaps were balanced. This required some medial and posterior medial release and removal of medial and posterior medial osteophytes. All posterior osteophytes removed. All meniscal remnants were resected. The tibia was reexposed and the trial tibial component size 6 was externally rotated in line with the tibial tubercle and pinned in position. The punch for stem was used. The notch cutting device was centered appropriately and the femoral notch cut was made. The femoral trial was inserted. Trial tibial inserts were placed and size 11 gave balanced ligaments through flexion and extension. Patella tracking was assessed. The patella tracked centrally. The trial components were then removed and the orthomix anesthetic cocktail was injected per protocol. The knee was then copiously irrigated with pulsatile lavage saline solution. Final components were then cemented with Simplex cement. Final components were size 7 left posterior stabilized Effie triathlon femoral component, size 6 tibial component, size 6 x 11 tibial bearing posterior stabilized polyethylene insert and the 36 x 10 mm symmetrical patella. After the cement cured the Betadine soak was used for 3 minutes. Further pulsatile lavage irrigation was then performed and 2 Hemovac drains were brought out laterally. The quadriceps tendon and medial retinaculum were closed with figure of 8 #1 Vicryl sutures. The knee was taken through full range of motion and the repair was secure. Knee range of motion was 0 through 135 degrees with complete stability full through full range of motion. The subcutaneous tissues were closed with 2-0 Vicryl sutures. Skin was closed with taylor. A sunitha and Acticoat superficial wound VAC was applied. The patient tolerated the procedure well. Uriah NARANJO and Krunal Sorto were my physician assistants who participated as hearing aid assistant at different portions of the procedure but both were present throughout the entire procedure and were involved in all aspects of the procedure including patient positioning prepping and draping,leg positioning ,soft tissue retraction and instrument management. Krunal NARANJO participated in the closing and application of the superficial wound VAC and will participate in postoperative care of the patient. The patient tolerated the procedure well. I attest to the content of the Intraoperative Record and any orders documented therein. Any exceptions are noted below.
--- NOTE | 2022-01-13 13:53 | XRay Report ---
XR knee LT 1 or 2V routine CLINICAL HISTORY: Surgical Post Op TECHNIQUE: 2 views of the left knee were obtained. Comparison: None available at the time of this dictation. FINDINGS: Patient is status post total knee arthroplasty with expected postsurgical changes including soft tiss ue swelling and subcutaneous emphysema. No periarticular lucency or hardware fracture is seen. IMPRESSION: Expected postoperative appearance status post placement of total knee arthroplasty. ACT 112: Negative or not required by law. Electronically signed by: Mason Bonilla M.D. 01/13/2022 1:51 PM
--- NOTE | 2022-01-13 14:11 | Anesthesiology Progress Note ---
Date of Service January 13, 2022 Anesthesia Post Procedure Vital Signs Vital Signs: Temp Pulse Pulse Resp BP Pulse Ox O2 Del Method 01/13/22 14:05 36.1 C L 55 L 13 105/58 L 94 Room Air 01/13/22 13:55 52 L 12 111/55 L 96 Room Air 01/13/22 13:45 52 L 12 109/67 94 Room Air 01/13/22 13:35 55 L 14 107/72 95 Room Air 01/13/22 13:25 55 L 12 101/57 L 94 Room Air 01/13/22 13:15 59 L 14 116/63 95 Room Air 01/13/22 13:05 62 13 116/59 L 98 Oxymask 01/13/22 12:57 36.2 C L 68 14 106/67 97 Oxymask 01/13/22 08:13 36.4 C L 66 20 132/84 94 Room Air O2 Flow Rate 01/13/22 14:05 01/13/22 13:55 01/13/22 13:45 01/13/22 13:35 01/13/22 13:25 01/13/22 13:15 01/13/22 13:05 2 01/13/22 12:57 2 01/13/22 08:13 Pain Intensity Left Knee: Pain Intensity: 1 Transfer of Care Handoff Completed per policy Notes Mental Status: alert / awake / arousable Patient Amnestic to Procedure: Yes Nausea / Vomiting: adequately controlled Pain: adequately controlled Airway Patency, RR, SpO2: stable & adequate BP & HR: stable & adequate Hydration State: stable & adequate Neuraxial Anesthesia: was administered and sensory block is resolving Anesthetic Complications: no major complications apparent
[2022-01-13] MEDS ORDERED: METOCLOPRAMIDE HCL INJ 5 MG/ML 2 ML VIAL IV PRN (15:14)
[2022-01-13] MEDS ORDERED: NALOXONE HCL 0.4 MG/1 ML VIAL/CARP IV PRN (15:14)
[2022-01-13] MEDS ORDERED: MAGNESIUM HYDROXIDE SUSP 30 ML UDC PO PRN (15:14)
[2022-01-13] MEDS ORDERED: ONDANSETRON INJ 2 MG/ML 2 ML VIAL IV PRN (15:14)
[2022-01-13] MEDS ORDERED: HYDROmorphone INJ 0.5 MG/0.5 ML SYR IV PRN (15:14)
[2022-01-13] MEDS ORDERED: bisacodyL 10 MG SUPP PR PRN (15:14)
[2022-01-13] MEDS ORDERED: TAMSULOSIN HCL 0.4 MG CAP PO PRN (15:14)
[2022-01-13] MEDS ORDERED: SODIUM CHLORIDE 0.9% 1000ML 1,000 ML IV SCH (15:20)
[2022-01-13] MEDS: ACETAMINOPHEN 500 MG TAB PO SCH ×2 (15:35→23:07)
--- NOTE | 2022-01-13 18:03 | Hospitalist Consultation ---
Date of Consultation January 13, 2022 History of Present Illness Reason for Consultation: post op medical management Attending Physician: Yonatan Watson MD History of Present Illness Kem Sharma is a 76-year-old male with a past medical history significant for CAD, CVA, hypertension, and dyslipidemia who was admitted today, 01/13 for left TKA with Dr. Caruso after failing conservative outpatient management. Hospitalist group was consulted for post-operative medication management. Today, he is POD#0 and feels well. Denies fever/chills, weakness, chest pain, palpitations, shortness of breath, cough, orthopnea, abdominal pain, nausea, vomiting. He is regaining sensation in his left leg, without any numbness or tingling. Family visit, he is resting in bed comfortably. Allergies Allergy/AdvReac Type Severity Reaction Status Date / Time celecoxib AdvReac Severe stroke Verified 01/13/22 08:03 Home Medications Medication Instructions Recorded Confirmed Type atorvastatin 40 mg tablet (Lipitor) 40 mg PO HS 08/20/21 01/13/22 History clopidogrel 75 mg tablet (Plavix) 75 mg PO QAM 08/20/21 01/13/22 History metoprolol succinate 25 mg 25 mg PO QAM 08/20/21 01/13/22 History tablet,extended release 24 hr (Toprol XL) telmisartan 40 mg tablet (Micardis) 40 mg PO QAM 08/20/21 01/13/22 History aspirin 81 mg tablet,delayed 81 mg PO BID #60 tabs 09/22/21 01/13/22 Rx release acetaminophen 500 mg tablet 1,000 mg PO Q8H 01/05/22 01/13/22 History (Tylenol Extra Strength) oxycodone 5 mg tablet 5 - 10 mg PO UD PRN pain 01/05/22 01/13/22 History Patient History Medical History CAD (coronary artery disease) stents x2 (2014) CVA (cerebral vascular accident) Right cerebellar stroke (2016), no residual effects Dyslipidemia Hypertension Myocardial Infarction 2015 > stents x2 Surgical History History of ankle surgery Left ankle (50+ years ago) - no hardware History of cardiac cath 2015 > stents x2; done in [facility]; f/u justin jim PA-C, Tricia Barraza History of colonoscopy History of heart artery stent 2015 > stents x2; done in [facility]; f/u tricia hardy History of removal of cyst off back History of tonsillectomy History of tooth extraction Hx of total knee replacement rt. Family History Father Cancer Pancreatic CA Other No family history of adverse response to anesthesia Social History Smoking Status: Former smoker Cigarettes Per Day: 4-5 cigs/day (recreational); Smoking End Date: quit "a couple weeks ago"; Second Hand Exposure: No; Do You Dip or Chew Tobacco: Yes (advised); Tobacco Cessation Education Requested by Patient: No Hx Alcohol Use: No Hx Substance Use: No Preferred Language: Egyptian Communication Ability: Effective Broadcast Systems Engineer Required: No Beliefs That Will Affect Care: None Current Living Situation: Spouse Current Living Situation Comment: cat Other Information That Helps Us Care for You: No Feels Safe at Home: Yes Safety Concerns: Feels Safe At This Time Assistive Devices: Cane and Walker Results & Data Results & Data ([facility]) Vital Signs (Past 12 Hours) Vital Signs Temp Pulse Pulse Resp BP Pulse Ox O2 Del Method 01/13/22 17:05 36.5 C 52 L 16 100/59 L 98 Room Air 01/13/22 15:20 Room Air 01/13/22 15:14 36.4 C L 52 L 16 112/66 96 Room Air 01/13/22 14:35 50 L 11 L 113/56 L 95 Room Air 01/13/22 14:05 36.1 C L 55 L 13 105/58 L 94 Room Air 01/13/22 13:55 52 L 12 111/55 L 96 Room Air 01/13/22 13:45 52 L 12 109/67 94 Room Air 01/13/22 13:35 55 L 14 107/72 95 Room Air 01/13/22 13:25 55 L 12 101/57 L 94 Room Air 01/13/22 13:15 59 L 14 116/63 95 Room Air 01/13/22 13:05 62 13 116/59 L 98 Oxymask 01/13/22 12:57 36.2 C L 68 14 106/67 97 Oxymask 01/13/22 08:13 36.4 C L 66 20 132/84 94 Room Air O2 Flow Rate 01/13/22 17:05 01/13/22 15:20 01/13/22 15:14 01/13/22 14:35 01/13/22 14:05 01/13/22 13:55 01/13/22 13:45 01/13/22 13:35 01/13/22 13:25 01/13/22 13:15 01/13/22 13:05 2 01/13/22 12:57 2 01/13/22 08:13 PG Care Time/CCT Total # of Minutes Spent Total Time Spent with Patient: Total time spent is greater than 50% in coordination of care (as documented) at patient's floor/unit and/or counseling patient: Coding
--- NOTE | 2022-01-13 18:36 | Hospitalist Consultation ---
Date of Consultation January 13, 2022 Assessment & Plan (1) Primary osteoarthritis of left knee: - Pain management, bowel regimen and DVT ppx per the primary team - PT/OT consults, pt is planning on outpatient therapy - Follow am CBC to monitor for acute blood loss (2) CAD (coronary artery disease): (3) Hypertension: (4) Dyslipidemia: - May continue telmisartan 40 mg daily, metoprolol succinate 25 mg daily, if BP allows - continue atorvastatin 40 mg HS. - Resume plavix within 24 hours if appropriate per the surgical team - May continue baby aspirin BID for DVT ppx - Encouraged continued tobacco use cessation. Quit 3 weeks ago. Previously smoked 3-5 cigarettes daily x 54 years. Denies nicotine patch. No alcohol use. Thank you for involving us in the care of Mr. Sharma. Please do not hesitate to call with questions or concerns. At this time medicine service will follow along. DVT ppx: teds, scds, aspirin 81 mg BID CODE: Full code Dispo: From home, likely to remain in the hospital x 1-2 days Supervising Physician Co-Signing Physician Notes Pt seen and examined by me, care coordinated w/ G. Jewel LAMBERT, pls see her note above for further detail. Pt is a 76 yo M w/hx of CAD w/ prior NSTEMI, HTN, COPD, hyperlipidemia, prior CVA, PVD/PAD, and tobacco abuse who is s/p Left total knee arthroplasty today by Dr. Watson. She is currently in bed, in no acute distress. He is alert oriented answering questions appropriately. Patient is little hard of hearing.Denies any chest pain, shortness of breath, abdominal pain.Denies any nausea, dizziness.Denies any numbness or tingling in lower extremities.Reports that he started to feel some pain in his left knee after surgery. Lung sounds are clear to auscultation. Heart sounds regular. Abdomen soft nontender nondistended.Surgical dressings, Ronak wrap and wound VAC, left knee. Patient is able to wiggle toes on his left leg, able to move left leg. Anticoagulation, aspirin twice daily ordered by orthopedics. Patient also on chronic Plavix, resume as appropriate. Continue to closely monitor. MD Geoffrey History of Present Illness Reason for Consultation: Medical management Requesting Physician: Dr. Watson Attending Physician: Yonatan Watson MD History of Present Illness This is a 76 yo M with PMhx of CAD w/ prior NSTEMI, HTN, COPD, hyperlipidemia, prior CVA, PVD/PAD, and tobacco abuse who presented for elective Left total knee arthroplasty today by Dr. Watson. Pt reports that he is doing well, denies having full sensation back in his legs,but feels like it is 50% back and anticipates working with nursing to get him up into bedside chair soon. He has not yet been up to walk since having surgery. Reports last bowel movement was yesterday, has not urinated since surgery. Tolerated dinner without difficulty and was very happy with the meal. Planning on having PT/OT with Alana after discharge. He stopped smoking 3 weeks ago, and prior to that was smoking 3-5 cigarettes daily x 54 years. 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 Denies any needs for a nicotine patch. No other acute complaints. Allergies Allergy/AdvReac Type Severity Reaction Status Date / Time celecoxib AdvReac Severe stroke Verified 01/13/22 08:03 Home Medications Medication Instructions Recorded Confirmed Type atorvastatin 40 mg tablet (Lipitor) 40 mg PO HS 08/20/21 01/13/22 History clopidogrel 75 mg tablet (Plavix) 75 mg PO QAM 08/20/21 01/13/22 History metoprolol succinate 25 mg 25 mg PO QAM 08/20/21 01/13/22 History tablet,extended release 24 hr (Toprol XL) telmisartan 40 mg tablet (Micardis) 40 mg PO QAM 08/20/21 01/13/22 History aspirin 81 mg tablet,delayed 81 mg PO BID #60 tabs 09/22/21 01/13/22 Rx release acetaminophen 500 mg tablet 1,000 mg PO Q8H 01/05/22 01/13/22 History (Tylenol Extra Strength) oxycodone 5 mg tablet 5 - 10 mg PO UD PRN pain 01/05/22 01/13/22 History Patient History Medical History CAD (coronary artery disease) stents x2 (2015) CVA (cerebral vascular accident) Right cerebellar stroke (2017), no residual effects Dyslipidemia Hypertension Myocardial Infarction 2015 > stents x2 Surgical History History of ankle surgery Left ankle (50+ years ago) - no hardware History of cardiac cath 2015 > stents x2; done in [facility]; f/u justin jim PA-C, Tricia Barraza History of colonoscopy History of heart artery stent 2015 > stents x2; done in [facility]; f/u tricia hardy History of removal of cyst off back History of tonsillectomy History of tooth extraction Hx of total knee replacement rt. Family History Father Cancer Pancreatic CA Other No family history of adverse response to anesthesia Social History Smoking Status: Former smoker Cigarettes Per Day: 4-5 cigs/day (recreational); Smoking End Date: quit "a couple weeks ago"; Second Hand Exposure: No; Do You Dip or Chew Tobacco: Yes (advised); Tobacco Cessation Education Requested by Patient: No Hx Alcohol Use: No Hx Substance Use: No Preferred Language: Turkish Communication Ability: Effective Labeling Strategist Required: No Beliefs That Will Affect Care: None Current Living Situation: Spouse Current Living Situation Comment: cat Other Information That Helps Us Care for You: No Feels Safe at Home: Yes Safety Concerns: Feels Safe At This Time Assistive Devices: Cane and Walker Review of Systems Review of Systems: Constitutional: No fever, sweats or chills Eyes: No diplopia, no worsening or blurred vision ENT: normal hearing, no trouble swallowing Respiratory: No cough, sputum, dyspnea at rest or on exertion Cardiovascular: No chest pain, tightness or palpitations Abdomen: No pain, nausea, vomiting, diarrhea or constipation Musculoskeletal: No joint pain, calf pain, swelling Neurologic: No weakness, numbness/tingling, or balance problems Psychiatric: No anxiety or depression Skin: No rash or itch Physical Exam Physical Exam: General: awake, alert, no apparent distress Head: Normocephalic, atraumatic ENT: PERRL, EOMI, no pharyngeal exudate, mucous membranes moist Chest: Clear to auscultation, on room air, no adventitious breath sounds Cardiac: Regular rate in mid 50s, sinus rhythm, no murmur, no JVD, normal peripheral pulses, good capillary refill Abdominal: NABS x 4 quadrants, soft, nondistended, nontender to palpation, no rebound or guarding Extremities: + LLE with ice pack in place, RONAK wrap on, ANTONIO drain intact, dressing c/d/i. Diminished sensation to light touch distally bilaterally. Otherwise, normal inspection, no peripheral edema or erythema, calfs nontender to palpation Back: surgical scars s/p benign cyst removal in multiple areas over his back, vertical scar over cervical to upper thoracic region well healed. Psych: Normal mood and affect Neuro: AAO x 3, strength intact bilaterally and rated 5/5, no motor deficits, speech is clear, + bilateral lower extremity peripheral sensory deficits to light touch but can feel it. Results & Data Results & Data ([facility]) Vital Signs (Past 12 Hours) Vital Signs Temp Pulse Pulse Resp BP Pulse Ox O2 Del Method 01/13/22 17:05 36.5 C 52 L 16 100/59 L 98 Room Air 01/13/22 15:20 Room Air 01/13/22 15:14 36.4 C L 52 L 16 112/66 96 Room Air 01/13/22 14:35 50 L 11 L 113/56 L 95 Room Air 01/13/22 14:05 36.1 C L 55 L 13 105/58 L 94 Room Air 01/13/22 13:55 52 L 12 111/55 L 96 Room Air 01/13/22 13:45 52 L 12 109/67 94 Room Air 01/13/22 13:35 55 L 14 107/72 95 Room Air 01/13/22 13:25 55 L 12 101/57 L 94 Room Air 01/13/22 13:15 59 L 14 116/63 95 Room Air 01/13/22 13:05 62 13 116/59 L 98 Oxymask 01/13/22 12:57 36.2 C L 68 14 106/67 97 Oxymask 01/13/22 08:13 36.4 C L 66 20 132/84 94 Room Air O2 Flow Rate 01/13/22 17:05 01/13/22 15:20 01/13/22 15:14 01/13/22 14:35 01/13/22 14:05 01/13/22 13:55 01/13/22 13:45 01/13/22 13:35 01/13/22 13:25 01/13/22 13:15 01/13/22 13:05 2 01/13/22 12:57 2 01/13/22 08:13 Laboratory Results 01/13/22 Unknown SARS-CoV-2, RNA, NAAT NEGATIVE Diagnostic Findings 01/13/22 Unknown SARS-CoV-2, RNA, NAAT NEGATIVE
[2022-01-13] MEDS: ceFAZolin 2000MG 2,000 MG/15 ML SYR IV SCH (18:52)
[2022-01-13] MEDS: oxyCODONE HCL IR 5 MG TAB (IMMEDIATE RELEASE) PO PRN (20:10)
[2022-01-13] MEDS: ASPIRIN 81 MG ECTAB PO SCH (20:11)
[2022-01-13] MEDS: DOCUSATE SODIUM 100 MG CAP PO SCH (20:11)
[2022-01-13] MEDS: ATORVASTATIN 40 MG TAB PO SCH (20:12)
[2022-01-13] MEDS: SENNA 8.6 MG TAB PO SCH (20:12)
[2022-01-14] MEDS: oxyCODONE HCL IR 5 MG TAB (IMMEDIATE RELEASE) PO PRN ×4 (00:09→16:00)
[2022-01-14] MEDS: ceFAZolin 2000MG 2,000 MG/15 ML SYR IV SCH (02:18)
[2022-01-14] MEDS: ACETAMINOPHEN 500 MG TAB PO SCH ×3 (06:04→22:17)
--- NOTE | 2022-01-14 07:19 | Orthopedic Progress Note ---
Date of Service January 14, 2022 Assessment & Plan (1) Primary osteoarthritis of left knee: Plan: POD#1 Left TKA -PT/OT -Pain management as written -AM labs-Pending -DVT prophylaxis-SCDs, TEDs, Asprin 81mg twice daily -D/C planning-dishcarge home with OPPT. Possible discharge later today depending on hemovac output. Admission and Anticipated Discharge Date Admission Date: January 13, 2022 Subjective Patient is sitting on bedside chair. He is having mild soreness in his knee this morning. Otherwise he is doing well. He denies chest pain, shortness of breath, dizziness, nausea/vomiting/diarrhea. Review of Systems Review of Systems: All systems reviewed & are unremarkable except as noted in Subjective Physical Exam Physical Exam: Left knee dressing is clean, dry, intact. Hemovac on suction. Toes are mobile with good dorsiflexion. No calf tenderness. Distally neurovascular status and sensation intact. Constitutional: well developed and well nourished; no acute distress Results & Data ([facility]) Vital Signs (Past 12 Hours) Vital Signs Temp Pulse Pulse Resp BP Pulse Ox O2 Del Method 01/14/22 02:40 36.9 C 67 20 164/72 H 98 Room Air 01/13/22 23:00 36.6 C 61 18 139/77 97 Room Air 01/13/22 19:40 36.4 C L 56 L 18 100/62 97 Room Air
[2022-01-14 07:27] LABS: Hematocrit (blood only) 38.4 % (40.1-51.0); Hemoglobin 12.7 g/dl (14.0-18.0); Mean Corpuscular Hemoglobin 28.5 pg (25.0-34.0); Mean Corpuscular Hgb Conc 33.1 g/dL (32.0-36.0); Mean Corpuscular Volume 86.3 fL (80.0-100.0); Mean Platelet Volume 11.8 fL (9.4-12.4); Platelet Count 281 K/uL (130-400); RDW Standard Deviation 40.5 fL (36.4-46.3); Red Blood Count 4.45 M/uL (4.63-6.08); White Blood Count 20.74 K/ul (4.8-10.8)
[2022-01-14 07:52] LABS: Calcium 9.9 mg/dl (8.5-10.1); Creatinine Clr Calc Pharmacy 68.9 ml/min; Est GFR (African American) 83.8 ml/min; Est GFR (Non-African American) 72.3 ml/min; Potassium 4.6 mmol/L (3.5-5.1)
[2022-01-14] MEDS: DOCUSATE SODIUM 100 MG CAP PO SCH ×2 (07:52→20:13)
[2022-01-14] MEDS: ASPIRIN 81 MG ECTAB PO SCH ×2 (07:52→20:13)
[2022-01-14] MEDS: METOPROLOL SUCC 25MG EXT REL TAB PO SCH (07:53)
[2022-01-14] MEDS: MULTIVITAMIN TAB PO SCH (07:53)
[2022-01-14] MEDS: CLOPIDOGREL BISULFATE 75 MG TAB PO SCH (07:53)
[2022-01-14] MEDS ORDERED: TELMISARTAN 40 MG TAB PO SCH (09:00)
--- NOTE | 2022-01-14 13:12 | Hospitalist Progress Note ---
Date of Service January 14, 2022 Assessment & Plan (1) Primary osteoarthritis of left knee: Plan: - Pain management, bowel regimen and DVT ppx per the primary team - PT/OT consults, (2) CAD (coronary artery disease): Plan: Patient reports a history of stent placement in 2017. He is currently on Plavix for secondary prevention. Also on Lipitor. Plavix can be put on hold while he is on aspirin twice daily. (3) Hypertension: Plan: Continue on metoprolol and telmisartan (4) Dyslipidemia: Plan: On Lipitor (5) Leukocytosis: Plan: WBC elevated to 20,000. He does not have any fever, chills, cough or urinary symptoms to suggest ongoing infection. Likely related with a stress after undergoing surgery. He also received steroids preoperatively as well. No empiric antibiotics indicated for the time being. Will need follow-up CBC. Plan Thank you for involving us in the care of Mr. Sharma. Please do not hesitate to call with questions or concerns. At this time medicine service will follow along. DVT ppx: teds, scds, aspirin 81 mg BID CODE: Full code Dispo: From home, Admission and Anticipated Discharge Date Admission Date: January 13, 2022 Subjective Patient seen and examined at bedside. Is comfortably sitting up on the bed; not in any distress. Drain is in place in his left knee with serosanguineous output. He denies fever, chills, chest pain, shortness of breath, abdominal pain or urinary symptoms. Review of Systems Review of Systems: All systems reviewed & are unremarkable except as noted in Subjective Physical Exam Physical Exam: General: awake, alert, no apparent distress Head: Normocephalic, atraumatic ENT: PERRL, EOMI, no pharyngeal exudate, mucous membranes moist Chest: Clear to auscultation, on room air, no adventitious breath sounds Cardiac: Regular rate in mid 50s, sinus rhythm, no murmur, no JVD, normal dirk pheral pulses, good capillary refill Abdominal: NABS x 4 quadrants, soft, nondistended, nontender to palpation, no rebound or guarding Extremities: + LLE with ice pack in place, NATHALIE wrap on, ANTONIO drain intact, dressing c/d/i. Diminished sensation to light touch distally bilaterally. Otherwise, normal inspection, no peripheral edema or erythema, calfs nontender to palpation Back: surgical scars s/p benign cyst removal in multiple areas over his back, vertical scar over cervical to upper thoracic region well healed. Psych: Normal mood and affect Neuro: AAO x 3, strength intact bilaterally and rated 5/5, no motor deficits, speech is clear, + bilateral lower extremity peripheral sensory deficits to light touch but can feel it. Results & Data Results & Data ([facility]) Vital Signs (Past 12 Hours) Vital Signs Temp Pulse Resp BP Pulse Ox O2 Del Method 01/14/22 07:22 36.3 C L 62 18 137/71 95 Room Air 01/14/22 02:40 36.9 C 67 20 164/72 H 98 Room Air Laboratory Results Laboratory Results WBC 20.74 K/ul (4.8-10.8) H 01/14/22 06:56 RBC 4.45 M/uL (4.63-6.08) L 01/14/22 06:56 Hgb 12.7 g/dl (14.0-18.0) L 01/14/22 06:56 Hct 38.4 % (40.1-51.0) L 01/14/22 06:56 MCV 86.3 fL (80.0-100.0) 01/14/22 06:56 MCH 28.5 pg (25.0-34.0) 01/14/22 06:56 MCHC 33.1 g/dL (32.0-36.0) 01/14/22 06:56 RDW Std Deviation 40.5 fL (36.4-46.3) 01/14/22 06:56 RDW Coeff of Gary 13.0 % (11.5-14.5) 01/14/22 06:56 Plt Count 281 K/uL (130-400) 01/14/22 06:56 MPV 11.8 fL (9.4-12.4) 01/14/22 06:56 Sodium 136 mmol/L (136-145) 01/14/22 06:56 Potassium 4.6 mmol/L (3.5-5.1) 01/14/22 06:56 Chloride 105 mmol/L (98-107) 01/14/22 06:56 Carbon Dioxide 24 mmol/L (21-32) 01/14/22 06:56 Anion Gap 7 (3-11) 01/14/22 06:56 BUN 19 mg/dl (6-23) 01/14/22 06:56 Creatinine 1.00 mg/dl (0.6-1.4) 01/14/22 06:56 Est Cr Clr Drug Dosing 68.9 ml/min 01/14/22 06:56 Est GFR ( Amer) 83.8 ml/min 01/14/22 06:56 Est GFR (Non-Af Amer) 72.3 ml/min 01/14/22 06:56 BUN/Creatinine Ratio 19.0 (10-20) 01/14/22 06:56 Glucose 174 mg/dl (70-99(Fasting)) H 01/14/22 06:56 Calcium 9.9 mg/dl (8.5-10.1) 01/14/22 06:56 SARS-CoV-2, RNA, NAAT NEGATIVE (NEGATIVE) 01/13/22 Unknown Impressions Knee X-Ray 01/13/22 13:00 XR knee LT 1 or 2V routine CLINICAL HISTORY: Surgical Post Op TECHNIQUE: 2 views of the left knee were obtained. Comparison: None available at the time of this dictation. FINDINGS: Patient is status post total knee arthroplasty with expected postsurgical changes including soft tissue swelling and subcutaneous emphysema. No periarticular lucency or hardware fracture is seen. IMPRESSION: Expected postoperative appearance status post placement of total knee arthroplasty. ACT 112: Negative or not required by law. Electronically signed by: Mason Bonilla M.D. 01/13/2022 1:51 PM
[2022-01-14] MEDS: ATORVASTATIN 40 MG TAB PO SCH (20:13)
[2022-01-14] MEDS: SENNA 8.6 MG TAB PO SCH (20:13)
[2022-01-15] MEDS: ACETAMINOPHEN 500 MG TAB PO SCH (05:45)
[2022-01-15] MEDS: oxyCODONE HCL IR 5 MG TAB (IMMEDIATE RELEASE) PO PRN (05:45)
--- NOTE | 2022-01-15 07:31 | Orthopedic Progress Note ---
Date of Service January 15, 2022 Assessment & Plan (1) Primary osteoarthritis of left knee: Plan: POD#2 Left TKA -PT/OT -Pain management as written -DVT prophylaxis-SCDs, TEDs, Asprin 81mg twice daily -D/C planning-dishcarge home with OPPT. Plan on discharge home today. Admission and Anticipated Discharge Date Admission Date: January 13, 2022 Subjective Patient is resting in bed comfortably. Pain is well controlled. No current complaints. Denies chest pain, shortness of breath, lightheadedness, nausea/vomiting/diarrhea. Review of Systems Review of Systems: All systems reviewed & are unremarkable except as noted in Subjective Physical Exam Physical Exam: Left knee dressing is clean, dry, intact. Toes are mobile with good dorsiflexion. No calf tenderness. Distally neurovascular status and sensation intact. Results & Data ([facility]) Vital Signs (Past 12 Hours) Vital Signs Temp Pulse Resp BP Pulse Ox O2 Del Method 01/14/22 20:35 36.5 C 70 18 144/76 H 96 Room Air
[2022-01-15] MEDS: DOCUSATE SODIUM 100 MG CAP PO SCH (07:39)
[2022-01-15] MEDS: ASPIRIN 81 MG ECTAB PO SCH (07:39)
[2022-01-15] MEDS: MULTIVITAMIN TAB PO SCH (07:40)
[2022-01-15] MEDS: CLOPIDOGREL BISULFATE 75 MG TAB PO SCH (07:40)
[2022-01-15] MEDS: METOPROLOL SUCC 25MG EXT REL TAB PO SCH (07:40)
[2022-01-15] MEDS ORDERED: TELMISARTAN 40 MG TAB PO SCH (09:00)
--- NOTE | 2022-01-15 15:27 | Hospitalist Progress Note ---
Date of Service January 15, 2022 Assessment & Plan (1) Primary osteoarthritis of left knee: Plan: - Pain management, bowel regimen and DVT ppx per the primary team (2) CAD (coronary artery disease): Plan: Patient reports a history of stent placement in 2017. He is currently on Plavix for secondary prevention. Also on Lipitor. Plavix can be put on hold while he is on aspirin twice daily. (3) Hypertension: Plan: Continue on metoprolol and telmisartan (4) Dyslipidemia: Plan: On Lipitor (5) Leukocytosis: Plan: WBC elevated to 20,000. He does not have any fever, chills, cough or urinary symptoms to suggest ongoing infection. Likely related with a stress after undergoing surgery. He also received steroids preoperatively as well. No empiric antibiotics indicated for the time being. Will need follow-up CBC. Plan Thank you for involving us in the care of Mr. Sharma. Please do not hesitate to call with questions or concerns. At this time medicine service will follow along. DVT ppx: teds, scds, aspirin 81 mg BID CODE: Full code Dispo: From home, Admission and Anticipated Discharge Date Admission Date: January 13, 2022 Subjective Patient is comfortable; not in any distress. Afebrile. Review of Systems Review of Systems: All systems reviewed & are unremarkable except as noted in Subjective Physical Exam Physical Exam: General: awake, alert, no apparent distress Head: Normocephalic, atraumatic ENT: PERRL, EOMI, no pharyngeal exudate, mucous membranes moist Chest: Clear to auscultation, on room air, no adventitious breath sounds Cardiac: Regular rate in mid 50s, sinus rhythm, no murmur, no JVD, normal peripheral pulses, good capillary refill Abdominal: NABS x 4 quadrants, soft, nondistended, nontender to palpation, no rebound or guarding Extremities: + LLE with ice pack in place, NATHALIE wrap on, ANTONIO drain intact, dressing c/d/i. Diminished sensation to light touch distally bilaterally. Otherwise, normal inspection, no peripheral edema or erythema, calfs nontender to palpation Back: surgical scars s/p benign cyst removal in multiple areas over his back, vertical scar over cervical to upper thoracic region well healed. Psych: Normal mood and affect Neuro: AAO x 3, strength intact bilaterally and rated 5/5, no motor deficits, speech is clear, + bilateral lower extremity peripheral sensory deficits to light touch but can feel it. Results & Data Results & Data ([facility]) Vital Signs (Past 12 Hours) Vital Signs Temp Pulse Pulse Resp BP Pulse Ox O2 Del Method 01/15/22 10:13 37.2 C 56 L 67 16 140/86 97 01/15/22 07:35 37.2 C 67 16 140/86 97 Room Air Laboratory Results Laboratory Results WBC 20.74 K/ul (4.8-10.8) H 01/14/22 06:56 RBC 4.45 M/uL (4.63-6.08) L 01/14/22 06:56 Hgb 12.7 g/dl (14.0-18.0) L 01/14/22 06:56 Hct 38.4 % (40.1-51.0) L 01/14/22 06:56 MCV 86.3 fL (80.0-100.0) 01/14/22 06:56 MCH 28.5 pg (25.0-34.0) 01/14/22 06:56 MCHC 33.1 g/dL (32.0-36.0) 01/14/22 06:56 RDW Std Deviation 40.5 fL (36.4-46.3) 01/14/22 06:56 RDW Coeff of Gary 13.0 % (11.5-14.5) 01/14/22 06:56 Plt Count 281 K/uL (130-400) 01/14/22 06:56 MPV 11.8 fL (9.4-12.4) 01/14/22 06:56 Sodium 136 mmol/L (136-145) 01/14/22 06:56 Potassium 4.6 mmol/L (3.5-5.1) 01/14/22 06:56 Chloride 105 mmol/L (98-107) 01/14/22 06:56 Carbon Dioxide 24 mmol/L (21-32) 01/14/22 06:56 Anion Gap 7 (3-11) 01/14/22 06:56 BUN 19 mg/dl (6-23) 01/14/22 06:56 Creatinine 1.00 mg/dl (0.6-1.4) 01/14/22 06:56 Est Cr Clr Drug Dosing 68.9 ml/min 01/14/22 06:56 Est GFR ( Amer) 83.8 ml/min 01/14/22 06:56 Est GFR (Non-Af Amer) 72.3 ml/min 01/14/22 06:56 BUN/Creatinine Ratio 19.0 (10-20) 01/14/22 06:56 Glucose 174 mg/dl (70-99(Fasting)) H 01/14/22 06:56 Calcium 9.9 mg/dl (8.5-10.1) 01/14/22 06:56 SARS-CoV-2, RNA, NAAT NEGATIVE (NEGATIVE) 01/13/22 Unknown Impressions Knee X-Ray 01/13/22 13:00 XR knee LT 1 or 2V routine CLINICAL HISTORY: Surgical Post Op TECHNIQUE: 2 views of the left knee were obtained. Comparison: None available at the time of this dictation. FINDINGS: Patient is status post total knee arthroplasty with expected postsurgical changes including soft tissue swelling and subcutaneous emphysema. No periarticular lucency or hardware fracture is seen. IMPRESSION: Expected postoperative appearance status post placement of total knee arthroplasty. ACT 112: Negative or not required by law. Electronically signed by: Mason Bonilla M.D. 01/13/2022 1:51 PM
--- NOTE | 2022-01-17 07:26 | Discharge Summary ---
Date of Service January 17, 2022 Admission HPI Per Admitting Provider 76 yo male with PMHx significant for HTN, high cholesterol, CAD, hx of [place], CVA, PAD who presents with ongoing left knee pain. Pain interferes with his daily activities. He has failed conservative measures and would like to proceed with surgical intervention. Has done well with prior right TKA. Patient denies headaches, sweats, fevers, chills, double vision, blurred vision, cough, sore throat, dysphagia, chest pain, sob, wheezing, n/v/d/c, numbness, tingling, fatigue, urinary symptoms, mood disorders. ROS positive for left knee pain and stiffness. Admission Exam Per Admitting Provider Constitutional: well developed and well nourished; no acute distress Eyes: PERRL, conjunctivae normal, anicteric sclerae ENMT: external ear and nose normal, oropharynx normal Neck: trachea midline, no thyromegaly Respiratory: normal respiratory effort, lungs clear to auscultation Cardiovascular: RRR, no murmur, no edema Musculoskeletal: Left knee: Varus alignment. Mild effusion. Tenderness medial joint line. Stable to valgus and varus stress. ROM 20-95 degrees. Skin: no rashes, warm and dry Neurologic: patellar DTR's 2+ bilat, sensation intact Psychiatric: A+Ox3, euthymic affect Principal Diagnosis Left knee osteoarthritis Discharge Exam Left knee dressing is clean, dry, intact. Toes are mobile with good dorsiflexion. No calf tenderness. Distally neurovascular status and sensation intact. Constitutional well developed and well nourished; no acute distress Discharge Data Allergies Allergy/AdvReac Type Severity Reaction Status Date / Time celecoxib AdvReac Severe stroke Verified 01/13/22 08:03 Consultations 01/08/22 14:32 Consult Hospitalist Routine Procedures Performed Operation Date: 01/13/22 09:40 Actual Procedures p Left Total Knee Arthroplasty(Left) - Yonatan Watson MD Ordered Studies 01/13/22 05:00 US - OR guided needle placemen Routine Hospital Course (1) Primary osteoarthritis of left knee: POD#2 Left TKA -PT/OT -Pain management as written -DVT prophylaxis-SCDs, TEDs, Asprin 81mg twice daily -D/C planning-dishcarge home with OPPT. Plan on discharge home today. POD#1 Left TKA -PT/OT -Pain management as written -AM labs-Pending -DVT prophylaxis-SCDs, TEDs, Asprin 81mg twice daily -D/C planning-dishcarge home with OPPT. Possible discharge later today depending on hemovac output. Lab Results 01/13/22 01/14/22 01/14/22 Range/Units Unknown 06:56 06:56 WBC 20.74 H (4.8-10.8) K/ul RBC 4.45 L (4.63-6.08) M/uL Hgb 12.7 L (14.0-18.0) g/dl Hct 38.4 L (40.1-51.0) % MCV 86.3 (80.0-100.0) fL MCH 28.5 (25.0-34.0) pg MCHC 33.1 (32.0-36.0) g/dL RDW Std Deviation 40.5 (36.4-46.3) fL RDW Coeff of Gary 13.0 (11.5-14.5) % Plt Count 281 (130-400) K/uL MPV 11.8 (9.4-12.4) fL Sodium 136 (136-145) mmol/L Potassium 4.6 (3.5-5.1) mmol/L Chloride 105 (98-107) mmol/L Carbon Dioxide 24 (21-32) mmol/L Anion Gap 7 (3-11) BUN 19 (6-23) mg/dl Creatinine 1.00 (0.6-1.4) mg/dl Est Cr Clr Drug Dosing 68.9 ml/min Est GFR ( Amer) 83.8 ml/min Est GFR (Non-Af Amer) 72.3 ml/min BUN/Creatinine Ratio 19.0 (10-20) Glucose 174 H (70-99(Fasting)) mg/dl Calcium 9.9 (8.5-10.1) mg/dl SARS-CoV-2, RNA, NAAT NEGATIVE (NEGATIVE) Total Time Total Time Spent Total Time Spent (In Minutes): 20 Discharge Plan Discharge Items Patient Disposition: Home - Self-Care Reason For Visit: Bilateral Osteoarthritis of Knee Discharge Diagnosis: Left knee osteoarthritis Activity: Per Instructions section Non-emergency contact: Surgeon Call non-emergency contact if: you have any medication questions, your pain is not controlled, your pain is concerning for you, you have a fever, your temperature is above 101, your wound has increased redness and your wound has increased drainage Follow-up/Referrals: Sagar Jasso M.D. [Primary Care Provider] - 01/25/22 3:00 pm (If unable to make your follow up appointment, please call the office to reschedule. ) Diet: Regular Addtl Attending Provider Instructions: ACTIVITY RECOMMENDATIONS: SELF CARE INSTRUCTIONS AFTER TOTAL KNEE REPLACEMENT A. You may need to continue a physical therapy program after discharge from the hospital. There are several options available to you. Your doctor will assist you in selecting the best one for you. 1. An out-patient facility 2 to 3 times a week for therapy or home therapy. 2. Continue working on all exercises taught to you in the hospital. Your goals should be to increase bending of your knee to 90 degrees and beyond and to fully straighten your knee. B. You may progress at your own pace from walking with a walker or crutches to a cane; then to no assistive devices. C. Make walking a part of your daily routine. Be up as much as comfortable with rest periods throughout the day. Rest with leg elevation is very important. Use the ice wrap frequently for the first 3-4 weeks. D. There are no restrictions on activities. You may ride in a car, shop, participate in street openings inspector and all social activities. E. Wear the long elastic stockings (KELSEY hose) 20 hours a day for 2 weeks after surgery. They can be removed several times a day for laundering and for a bath. F. You may shower, no tub baths until cleared by your doctor. SPECIAL CARE INSTRUCTIONS: VERY IMPORTANT TO READ AND REVIEW A. There are a few signs you need to watch for after you are home. Call [facility] if you notice any of the followin. Increased severe knee pain. Some pain is expected especially when you exercise. 2. Increased swelling in your leg or knee; pain or swelling of the calf muscle in either lower leg. 3. Any fluid drainage from the incision. 4. Shortness of breath or chest pain. B. Please call [facility] at if you have any concerns or questions about your operation or recovery. The doctor or his nurse will return your call promptly. C. You must take antibiotics before dental work, bladder, bowel or other surgery. Your doctor will provide you with a permanent care to carry describing this precaution. IMPORTANT: * REMEMBER TO TAKE ASPIRIN, 81 MG, TWICE DAILY FOR 4 WEEKS UNLESS OTHERWISE DIRECTED. THIS IS YOUR BLOOD THINNER. * HIGH RISK PATIENTS MAY BE PRESCRIBED A STRONGER BLOOD THINNER. THIS WILL BE PROVIDED AT DISCHARGE. * CALL IF INCREASED PAIN, REDNESS, DRAINAGE OR FEVER GREATER THAT 101. * WEAR KELSEY HOSE 20 HOURS PER DAY FOR 2 WEEKS. This is a large suction dressing covering your incision. This will help pull any excess drainage from the wound and allow your incision to heal properly. You may shower with this if you can keep the unit outside of the shower. If any bleeding or leakage is noted please call your doctor's office. This will remain on your incision for 7 days and then should be removed. This can be done yourself or by the home nursing staff if applicable. The entire unit is disposable once removed. Once removed, keep incision clean and dry. If redness or drainage is noted, please call your surgeon. IF INCISION IS LEAKING THROUGH DRESSING, CALL THE OFFICE . FOLLOW UP VISIT: If appointment is not already scheduled: Please call [facility] to make a follow-up appointment for 2 weeks after your surgery at . Stand-Alone Forms: [employer], Smoking Cessation Medications and DC Order Prescriptions: New aspirin 81 mg Tablet,Delayed Release (Dr/Ec) 81 mg PO BID Qty: 60 0RF acetaminophen [Tylenol Extra Strength] 500 mg Tablet 1,000 mg PO Q8 Qty: 60 0RF oxycodone 5 mg Tablet 5 - 10 mg PO .Q4h-6h MDD 6 PRN (Reason: pain) Qty: 30 0RF Rx Instructions: Ongoing therapy, Dr. Watson supervising Continued atorvastatin [Lipitor] 40 mg Tablet 40 mg PO HS clopidogrel [Plavix] 75 mg Tablet 75 mg PO QAM telmisartan [Micardis] 40 mg Tablet 40 mg PO QAM metoprolol succinate [Toprol XL] 25 mg Tablet Extended Release 24 Hr 25 mg PO QAM Discontinued aspirin 81 mg Tablet,Delayed Release (Dr/Ec) 81 mg PO BID Qty: 60 0RF Rx Instructions: PER PATIENT STOPPED AT LEAST A WEEK AGO FOR SURGERY acetaminophen [Tylenol Extra Strength] 500 mg tablet 1,000 mg PO Q8H oxycodone 5 mg tablet 5 - 10 mg PO UD MDD 6 PRN (Reason: pain) Rx Instructions: [id number], Ongoing therapy, Dr. Watson supervising Discharge Orders: Discharge Order (Routine); Ordered 01/15/22 Ordered By: Liam Vann/Other Patient Handouts: Falls Prevent Adjust Living Space Admission Data Admit Date/Time: 01/13/22 13:00 Attending Provider: Yonatan Watson Admit Provider: Yonatan Watson Primary Care Provider: Sagar Jasso Other Providers: Jorge Mohr ; Patricio Jeff Other Interventions: Discharge Summary Assessment (RN) Last Done: 01/15/22 10:13
== END 2022-01-15 11:23 | disposition home or self-care (01) ==
LOC: 3E 07:35 → ASU 07:35
DX: I73.9 Peripheral vascular disease, unspecified; Z79.82 Long term (current) use of aspirin; M17.12 Unilateral primary osteoarthritis, left knee; Z87.891 Personal history of nicotine dependence; Z79.899 Other long term (current) drug therapy; Z79.02 Long term (current) use of antithrombotics/antiplatelets; Z88.8 Allergy status to other drugs, medicaments and biological substances